=== PATIENT | male | born 1955 | race Caucasian/White ===

== ENCOUNTER 2023-02-21 10:50 | Emergency (ER) | payer OTHER, SELFPAY ==
--- NOTE | 2023-02-21 10:55 | ED.GENADUL1 ---
HPI - General Adult General Chief complaint: Back Pain/Injury Stated complaint: POSS. KIDNEY STONE OR BACK INJURY Time Seen by Provider: 02/21/23 10:55 History of Present Illness HPI narrative: Patient presents to emergency department complaining of left flank pain. Patient states the pain is severe and reminds him when he had a kidney stone over a year ago. He denies any hematuria, dysuria. He denies any fever, chills. He denies any nausea, vomiting, diarrhea, constipation, abdominal pain. He denies any trauma. He took tramadol which he has from last year has not had any relief from the pain. He denies any paresthesias, or weakness. He denies any urinary, bowel incontinence, retention. Related Data Previous Rx's Medication Instructions Recorded cephalexin 500 mg capsule 500 mg PO TID 7 days #21 caps 02/21/23 cyclobenzaprine 10 mg tablet 10 mg PO TID PRN muscle spasm 5 02/21/23 days #14 tabs Allergies Allergy/AdvReac Type Severity Reaction Status Date / Time No Known Drug Allergies Allergy Verified 02/21/23 10:57 Review of Systems ROS Status of ROS 10 or more systems reviewed and unremarkable except as noted in history and below [facility] Social History Smoking status: Never smoker Exam Narrative Exam Narrative: Nurses notes and vital signs reviewed and patient is not hypoxic. General: Nontoxic, Well-appearing and in no apparent distress. Skin: Warm, dry, no pallor noted. No Rash Head: Normocephalic, atraumatic. Neck: Supple, non-tender. Eye: Pupils are equal, round and EOMI. No scleral icterus. Ears, Nose, Mouth, and Throat: TM clear, no posterior oropharynx erythema or nasal mucosal hypertrophy, uvula is mid-line Oral mucosa is moist Cardiovascular: Regular Rate and Rhythm without murmur, gallop or rub. Respiratory: No accessory muscle use or respiratory distress. Lungs are clear to auscultation, no wheezing, rales or rhonchi Chest Wall: no tenderness Back: No midline thoracic or lumbar vertebral tenderness. Tenderness to palpation to the left flank and paraspinal muscles, no erythema, ecchymosis, signs of trauma, infection. Musculoskeletal: normal ROM, no calf or popliteal tenderness, no lower extremity edema/swelling GI: Obese, Abdomen is soft, non-distended. Normal bowel sounds. No masses appreciated. No tenderness to palpation. No rebound, guarding, or rigidity noted. Neurological: A&O x4. No cranial nerve dysfunction observed. No truncal ataxia. Moves all extremities. Sensation intact. Psychiatric: Cooperative and interactive. Normal mood and affect. Constitutional Vital Signs, click to edit/add: Last Vital Signs Temp 98 F 02/21/23 10:57 Pulse 63 02/21/23 10:57 Resp 18 02/21/23 10:57 BP 184/85 H 02/21/23 10:57 Pulse Ox 97 02/21/23 10:57 O2 Del Method Room Air 02/21/23 10:57 Course Vital Signs Vital signs: Vital Signs Temperature 98 F 02/21/23 10:57 Pulse Rate 63 02/21/23 10:57 Respiratory Rate 18 02/21/23 10:57 Blood Pressure 184/85 H 02/21/23 10:57 Pulse Oximetry 97 02/21/23 10:57 Oxygen Delivery Method Room Air 02/21/23 10:57 Temperature 98 F 02/21/23 10:57 Pulse Rate 63 02/21/23 10:57 Respiratory Rate 18 02/21/23 10:57 Blood Pressure 184/85 H 02/21/23 10:57 Pulse Oximetry 97 02/21/23 10:57 Oxygen Delivery Method Room Air 02/21/23 10:57 Medical Decision Making MDM Narrative Medical decision making narrative: Patient was given IV fluids, morphine, and Zofran. Labs studies were done and are unremarkable. He has trace leukocytes in the urine. He'll be started on Keflex. Patient advised this will be sent off for culture. Patient has tramadol at home. We will add Flexeril. He will follow up with his primary care doctor. CT scan results were discussed with patient. Nontoxic, stable for outpatient follow-up and treatment. At this time the patient is without objective evidence of an acute process requiring hospitalization or inpatient management. The patient has remained hemodynamically stable. No additional indication for emergent studies at this time. I answered all questions. Discussed discharge instructions including standard anticipatory guidance and what should prompt a return to the emergency department, including if they get worse are not getting better or develops any new or concerning symptoms. I've given them specific time frame in which to follow-up, and who to follow-up with. The patient demonstrates understanding. Patient is nontoxic and stable for discharge with outpatient follow-up. This note was created with the assistance of a speech recognition program. Although the intention is to generate documents that actually reflects the content of the visit, no guarantees can be provided that every mistake has been identified and corrected by editing. Lab Data Lab results reviewed: Yes I reviewed the patient's lab results Labs: Lab Results 02/21/23 Range/Units 11:14 WBC 3.3 L (4.0-11.0) 10^3/uL RBC 3.83 L (4.70-6.10) 10^6/uL Hgb 10.2 L (14.0-18.0) g/dL Hct 32.9 L (42.0-54.0) % MCV 85.9 (80.0-94.0) fL MCH 26.6 (25.9-34.0) pg MCHC 31.0 (29.9-35.2) g/dL RDW 15.5 H (11.0-15.0) % Plt Count 129 L (150-450) 10^3/uL MPV 9.2 L (9.5-13.5) fL Neut % (Auto) 54.6 (43.0-75.0) % Lymph % (Auto) 36.6 (20.5-60.0) % [place] % (Auto) 6.4 (1.7-12.0) % Eos % (Auto) 2.1 (0.9-7.0) % Baso % (Auto) 0.3 (0.2-2.0) % Neut # (Auto) 1.8 (1.4-6.5) 10^3/uL Lymph # (Auto) 1.2 (1.2-3.8) 10^3/uL [place] # (Auto) 0.2 L (0.3-0.8) 10^3/uL Eos # (Auto) 0.1 (0.0-0.7) 10^3/uL Baso # (Auto) 0.0 (0.0-0.1) 10^3/uL Abs Immat Gran (auto) 0.00 (0.00-0.03) 10^3/uL Imm/Tot Granulo (auto) 0.0 (0.0-0.5) % Sodium 140 (136-145) mmol/L Potassium 4.1 (3.5-5.1) mmol/L Chloride 105 (98-107) mmol/L Carbon Dioxide 23.3 (21.0-32.0) mmol/L Anion Gap 15.8 BUN 24.0 H (7.0-18.0) mg/dL Creatinine 1.00 (0.70-1.30) mg/dL Est GFR ( Amer) >60 (>=60) Est GFR (Non-Af Amer) >60 (>=60) BUN/Creatinine Ratio 24.0 Glucose 127 H (74-106) mg/dL Calcium 9.3 (8.5-10.1) mg/dL Total Bilirubin 0.5 (0.2-1.0) mg/dL AST 43 H (15-37) U/L ALT 50 (16-63) U/L Alkaline Phosphatase 171 H (46-116) U/L Total Protein 7.9 (6.4-8.2) g/dL Albumin 3.9 (3.4-5.0) g/dL Globulin 4.0 g/dL Albumin/Globulin Ratio 1.0 Urine Color Lt. yellow (YELLOW) Urine Clarity Clear (CLEAR) Urine pH 6.0 (5.0-9.0) Ur Specific [place] 1.025 (1.005-1.025) Urine Protein Negative (NEG/TRACE) mg/dL Urine Glucose (UA) Negative (NEGATIVE) mg/dL Urine Ketones Negative (NEGATIVE) mg/dL Urine Occult Blood Negative (NEGATIVE) Urine Nitrite Negative (NEGATIVE) Urine Bilirubin Negative (NEGATIVE) Urine Urobilinogen 0.2 (0.2-1.0) EU/dL Ur Leukocyte Esterase Trace A (NEGATIVE) Urine RBC None seen (0-2) #/HPF Urine WBC 0-2 A (NONE SEEN) #/HPF Ur Squamous Epith Cells None seen (NONE/RARE) #/LPF Urine Crystals None seen (None Seen) #/HPF Urine Bacteria None seen (NONE SEEN) #/HPF Urine Casts None seen (NONE SEEN) #/LPF Urine Mucus None seen (NONE SEEN) Ur Culture Indicated? No Discharge Plan Discharge Chief Complaint: Back Pain/Injury Clinical Impression: Strain of lumbar region, Acute UTI Patient Disposition: Home, Self-Care Time of Disposition Decision: 12:47 Condition: Good Mode of Transportation: Private Vehicle Prescriptions / Home Meds: New cyclobenzaprine 10 mg tablet 10 mg PO TID PRN (Reason: muscle spasm) 5 Days Qty: 14 0RF cephalexin 500 mg capsule 500 mg PO TID 7 Days Qty: 21 0RF Instructions: Urinary Tract Infection in Men (ED), Back Pain (ED) Stand Alone Forms: Portal Instructions Referrals: MARIA ALEJANDRA JENNINGS [Primary Care Provider] - 1 week
[2023-02-21 10:57] VITALS: BP 184/85; PULSE 63; RESP 18; TEMP 36.6; O2SAT 97; BMI 49.2
--- NOTE | 2023-02-21 11:09 | CT_ITS ---
The [address] [address] Patient Name: JUAN MOYA MRN: [id number] date: 1955 Sex: M Assigned Patient Location: ER Current Patient Location: ER Accession/Order Number: [id number] Exam Date: 02/21/2023 11:30 Report Date: 02/21/2023 12:16 At the request of: MIGUEL MINOR Procedure: CT abdomen pelvis wo con CT abdomen pelvis wo con CLINICAL HISTORY: Left flank pain since last night. History of renal stones. COMPARISON: None Available. TECHNIQUE: No IV contrast axial CT scan from lung bases through symphysis pubis. Lack of IV contrast limits evaluation of solid organs. Oral contrast was not administered. Coronal and sagittal reconstructed images generated. Dose reduction techniques were achieved by using automated exposure control and/or adjustment of mA and/or kV according to patient size and/or use of iterative reconstruction technique. FINDINGS: CT ABDOMEN FINDINGS: Normal heart size. Lung bases clear except for slight scarring. Liver measures 21 cm. Spleen measures 17 cm. Normal spontaneous adrenal glands. Gallbladder and pancreas unremarkable. No renal stones or hydronephrosis. Atherosclerotic aorta without aneurysm. GI tract nondilated without obstruction. A few colonic diverticula without diverticulitis. No other significant inflammatory change or ascites. Mild to moderate retained stool of the colon. No significant inflammatory change or ascites. CT PELVIS FINDINGS: Prostate is normal size with a few scattered calcifications. Urinary bladder unremarkable. Lumbar spondylosis without acute bony process. Visualized lower ribs are intact where seen. CT/CT abdomen pelvis wo con IMPRESSION: No renal stones or hydronephrosis. Occasional colonic diverticulosis without diverticulitis. No other acute process. Hepatosplenomegaly. Electronically authenticated by: MONIQUE MADRIGAL Date: 02/21/2023 12:16
[2023-02-21 11:27] LABS: Basophils Percent Auto 0.3 % (0.2-2.0); Eosinophils Absolute Auto 0.1 10^3/uL (0.0-0.7); Eosinophils Percent Auto 2.1 % (0.9-7.0); Hematocrit 32.9 % (42.0-54.0); Hemoglobin 10.2 g/dL (14.0-18.0); Lymphocytes Absolute Auto 1.2 10^3/uL (1.2-3.8); Lymphocytes Percent Auto 36.6 % (20.5-60.0); Mean Corpuscular Hemoglobin 26.6 pg (25.9-34.0); Mean Corpuscular Volume 85.9 fL (80.0-94.0); Mean Platelet Volume 9.2 fL (9.5-13.5); Monocytes Absolute Auto 0.2 10^3/uL (0.3-0.8); Monocytes Percent Auto 6.4 % (1.7-12.0); Neutrophils Absolute Auto 1.8 10^3/uL (1.4-6.5); Neutrophils Percent Auto 54.6 % (43.0-75.0); Platelet Count 129 10^3/uL (150-450); Red Blood Count 3.83 10^6/uL (4.70-6.10); Red Cell Distribution Width 15.5 % (11.0-15.0); White Blood Count 3.3 10^3/uL (4.0-11.0)
[2023-02-21 11:34] LABS: Bilirubin Urine NEGATIVE (NEGATIVE); Blood Urine NEGATIVE (NEGATIVE); Clarity Urine CLEAR (CLEAR); Color Urine LT. YELLOW (YELLOW); Glucose Urine UA NEGATIVE (NEGATIVE); Ketones Urine NEGATIVE (NEGATIVE); Leukocyte Esterase Urine TRACE (NEGATIVE); Nitrite Urine NEGATIVE (NEGATIVE); Protein Urine NEGATIVE (NEG/TRACE); Specific Gravity Urine 1.025 (1.005-1.025); Urobilinogen Urine 0.2 EU/dL (0.2-1.0)
[2023-02-21 11:36] LABS: Urine Microscopic Indicated YES
[2023-02-21 11:41] LABS: Bacteria Urine NONE SEEN #/HPF (NONE SEEN); Crystals Seen? None Seen #/HPF (None Seen); Mucus Urine NONE SEEN (NONE SEEN); RBC Urine NONE SEEN #/HPF (0-2); Squamous Epithelial Cell Urine NONE SEEN #/LPF (NONE/RARE); WBC Urine 0-2 #/HPF (NONE SEEN)
[2023-02-21 11:42] LABS: Cast Seen? NONE SEEN #/LPF (NONE SEEN); Urine Culture Indicated NO
[2023-02-21] MEDS: MORPHINE SULFATE 4 MG/ML VIAL IV (11:42)
[2023-02-21] MEDS: ONDANSETRON PF 4 MG/2 ML VIAL IV (11:42)
[2023-02-21 11:43] LABS: Alanine Aminotransferase 50 U/L (16-63); Albumin Level 3.9 g/dL (3.4-5.0); Alkaline Phosphatase 171 U/L (46-116); Anion Gap 15.8; Aspartate Amino Transferase 43 U/L (15-37); Bilirubin Total 0.5 mg/dL (0.2-1.0); Calcium 9.3 mg/dL (8.5-10.1); Carbon Dioxide 23.3 mmol/L (21.0-32.0); Chloride 105 mmol/L (98-107); Estimated GFR (African America >60 (>=60); Estimated GFR (Non-African Ame >60 (>=60); Glucose 127 mg/dL (74-106); Potassium 4.1 mmol/L (3.5-5.1); Sodium 140 mmol/L (136-145); Total Protein 7.9 g/dL (6.4-8.2)
[2023-02-21] MEDS: 0.9 % SODIUM CHLORIDE 1,000 ML 999 ML IV (11:43)
== END 2023-02-21 13:01 | disposition home or self-care (01) ==
PROVIDERS: Emergency Provider Emergency Medicine; PCP Internal Medicine
DX: N39.0 Urinary tract infection, site not specified (principal); S39.012A Strain of muscle, fascia and tendon of lower back, initial encounter; X58.XXXA Exposure to other specified factors, initial encounter; Z87.442 Personal history of urinary calculi
CPT/HCPCS: 36415; 74176; 80053; 81001; 81003; 85025; 96374; 96375; 99285

== ENCOUNTER 2023-07-17 07:44 | Outpatient (OUT) | payer OTHER, SELFPAY ==
--- NOTE | 2023-07-17 07:47 | US_ITS ---
The [address] [address] Patient Name: JUAN MOYA MRN: [id number] date: 1955 Sex: M Assigned Patient Location: US Current Patient Location: US Accession/Order Number: [id number] Exam Date: 07/17/2023 07:50 Report Date: 07/17/2023 08:34 At the request of: NON-STAFF PHYSICIAN Procedure: US right upper quadrant EXAM: US right upper quadrant HISTORY: . Splenomegaly R16.11 . COMPARISON: None. TECHNIQUE: Grayscale and color imaging was performed FINDINGS: The pancreas appears normal. The liver is enlarged measuring 23 cm. There is mild increased echogenicity of liver consistent with fatty infiltration of the liver. There is a 7 x 4 mm cyst within the left lobe of the liver. Color-flow is noted in the portal and hepatic veins. Common bile duct measures 2 mm. The gallbladder appears normal with no stones or sludge identified. Right kidney measures 13.5 x 4.8 x 5.6 cm. Color-flow is noted. No hydronephrosis is noted. There is a 1.1 x 0.9 cm hyperechoic area involving the midpole of the right kidney in the cortex. Findings most likely represent a benign lesion such as an angiomyolipoma. No fluid is noted in the right upper quadrant. US/US right upper quadrant IMPRESSION: 1. The liver is enlarged measuring 23 cm. There is diffuse increased echogenicity of liver consistent with fatty infiltration of liver. 2. 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 No hydronephrosis. 3. The remainder the right upper quadrant was unremarkable. Electronically authenticated by: RADHA LEBRON Date: 07/17/2023 08:34
== END 2023-07-17 07:45 | disposition home or self-care (01) ==
LOC: US 07:44
PROVIDERS: PCP Internal Medicine
DX: R16.1 Splenomegaly, not elsewhere classified (principal)
CPT/HCPCS: 76705

== ENCOUNTER 2024-06-29 08:39 | Outpatient (OUT) | payer OTHER, SELFPAY ==
--- NOTE | 2024-06-29 08:48 | CT_ITS ---
The [address] [address] Patient Name: JUAN MOYA MRN: [id number] date: 1955 Sex: M Assigned Patient Location: LAB Current Patient Location: LAB Accession/Order Number: [id number] Exam Date: 06/29/2024 09:55 Report Date: 06/29/2024 13:52 At the request of: ARABELLA MUÑOZ Procedure: CT abdomen pelvis w con EXAM: CT scan of the abdomen and pelvis using 100 mL of IV iodinated contrast. Dose reduction technique used: Automated exposure control and/or adjustment of the mA and/or kV according to patient size and/or use of iterative reconstruction technique. REASON FOR EXAM: Angiomyolipoma D17.9 COMPARISON: CT scan dated 02/21/2023 FINDINGS: Cirrhotic liver. Posterior right renal tiny angiomyolipoma measuring up to 10 mm. Upper abdominal varicosities. Splenomegaly measuring up to 15.4 cm. Tiny hepatic cyst. No evidence of appendicitis. No free fluid in the abdomen or pelvis. No free intraperitoneal air. No dilated or thickened loops of small bowel or colon. No hydronephrosis or obstructing renal or ureteral calculi. Liver, pancreas, spleen, bilateral kidneys, and bilateral adrenal glands are otherwise unremarkable. No lymphadenopathy in the abdomen or pelvis. Remainder unremarkable. CT/CT abdomen pelvis w con IMPRESSION: 1. Tiny right renal angiomyolipoma. 2. Cirrhotic liver with splenomegaly. Electronically authenticated by: ASHLYN GARCIA Date: 06/29/2024 13:52
[2024-06-29 08:57] LABS: Estimated GFR (African America >60 (>=60 mL/min/1.73m^2); Estimated GFR (Non-African Ame 53 (>=60 mL/min/1.73m^2)
== END 2024-06-29 08:40 | disposition home or self-care (01) ==
LOC: LAB 08:39
PROVIDERS: PCP Internal Medicine; Visit Provider Urology
DX: N20.0 Calculus of kidney (principal); D17.9 Benign lipomatous neoplasm, unspecified; N40.1 Benign prostatic hyperplasia with lower urinary tract symptoms; K74.69 Other cirrhosis of liver; R16.1 Splenomegaly, not elsewhere classified
CPT/HCPCS: 36415; 74177; 82565; 84153; Q9967

== ENCOUNTER 2025-07-12 08:53 | Outpatient (OUT) | payer MEDICARE, SELFPAY ==
--- OUTSIDE RECORDS SUMMARY | 2025-07-11 08:38 | XMS_ITS | Continuity of Care Document ---
Author Organization [facility] Address [address] [place] [address] Phone Care Team Providers Care Wall Man Name Role Phone Kendell Finch II Primary Care Provider [phone] Chaz Palacio MD Attending Provider [phone] Chaz Palacio MD Other Provider Care Teams Patient Care Team Team Status: Active Member Role/Relationship Status Dates Kendell Finch II MD Primary Care Provider Active Visit Care Team Team Status: Inactive Member Role/Relationship Status Dates Kendell Finch II MD Primary Care Provider Active Start: June 01, 2025 End: June 01Roberto Carlos Mchugh ProviderActiveStart: June 01, 2025 End: June 01, 2025 Visit Care Team Team Status: Inactive Member Role/Relationship Status Dates Kendell Finch II MD Primary Care Provider Active Start: June 13, 2025 End: June 13Roberto Carlos Mchugh ProviderActiveStart: June 13, 2025 End: June 13, 2025 Patient Care Team Team Status: Active Member Role/Relationship Status Kay Finch II MD Primary Care Provider Active Start: July 06, 2025 Roberto Carlos Tompkins ProviderActiveStart: July 06, 2025 Patient Care Team Team Status: Active Member Role/Relationship Status Kay Finch II MD Primary Care Provider Active Start: July 06, 2025 Roberto Carlos Tompkins ProviderActiveStart: July 06, 2025 Patient Care Team Team Status: Active Member Role/Relationship Status Dates Kendell Finch II MD Primary Care Provider Active Start: July 11, 2025 Roberto Carlos Tompkins ProviderActiveStart: July 11, 2025 Jamison Tompkins ProviderActiveStart: July 11, 2025 Chief Complaint and Reason for Visit Chief Complaint Admit Date follow up-fatty liver June 01, 2025 1:01pm K74.69 June 13, 2025 10:12am CC Gastro Follow Up July 06, 2025 11:42am CC Gastro Follow Up July 06, 2025 11:43am cirrhosis/esophageal varices July 112024 11:09am Reason for Visit Admit Date Cirrhosis June 01, 2025 1 :01pm GERD (gastroesophageal reflux disease) N ovember 2024 1:01pm Metabolic dysfunction-associated steatoh epatitis (MASH) June 01, 2025 1:01pm Portal hypertension June 01, 2025 1 :01pm Allergies, Adverse Reactions, Alerts Allergen Type Severity Reaction Last Updated Verified Status Comments aspirin Allergy Severe Gastrointestina l Upset July 03, 2025 7:12am Yes Active liver damage ibuprofen Allergy Severe Gastrointestina l Upset July 03, 2025 7:12am Yes Active acetaminophenAdverse ReactionUnknownGastrointestinal UpsetDecember 2024 7:12amYesActivehydrocodoneAdverse ReactionUnknownGastrointestinal UpsetDecember 2024 7:12amYesActive Social History Smoking Status Status Start Date End Date Date of Observa tion Never smoked tobacco (finding) July 11, 2025 12:15pm Observation Status Observation Response Date of Response Legal Sex Male (finding) Sex Assigned At BirthMaleJuly 1954 Family History Relationship Condition Age at Onset Recorded Date/T missy father Malignant neoplasm of urinary bladder Unk nown DeceasedUnknownmotherHyperlipidemiaUnknownHypertensionUnknownsisterLeukemia Unknown Problems Active Problems Problem Diagnosis/Recorded Date Onset Date Stat Metabolic dysfunction-associ ated steatohepatitis (MASH) February 04, 2024 9:05am Unknown Active Exercise counseling October 29, 2023 6:58am Unknown Active Sleep apnea July 07, 2023 12:45pm Unknown Active Abdominal cramping March 07, 2025 8:36am Unknown Active Dietary surveillance and counseling October 29, 2023 6: 58am Unknown Active Fatty liver October 29, 2023 7:12am Unknown Activ e Diabetes mellitus, type 2 July 07, 2023 12:45pm Unknown Active Esophageal varices September 25, 2023 9:08am Unknown Active Hypercholesteremia July 07, 2023 12:44pm Unknown Active Cirrhosis September 25, 2023 9:09am Unknown Activ e Mixed hyperlipidemia February 04, 2024 9:05am Unknown Active Obesity, Class II, BMI 35-39.9 May 24, 2024 8:18 am Unknown Active GERD (gastroesophageal reflux disease) July 05, 2024 10:02am Unknown Active Severe obesity (BMI >= 40) October 29, 2023 6:58am Unkn own Active Nausea & vomiting March 07, 2025 8:43am Unknown Active Abdominal pain March 07, 2025 8:43am Unknown A ctive Hypertension July 07, 2023 12:44pm Unknown Active Nausea March 07, 2025 8:35am Unknown Act sampson Obesity September 25, 2023 9:17am Unknown Activ e Portal hypertension June 01, 2025 1:01pm Unknown Active Portal hypertensive gastropathy July 05, 2024 10 :01am Unknown Active Inactive/Resolved Problems Problem Diagnosis/Recorded Date Onset Date Stat us WESTON (nonalcoholic steatohepatitis) September 25, 2023 9: 07am Unknown Resolved Medications Medication Status Dose Units Route Directions Qty Days Refills S tart Date Stop Date End Date Reason(s) Instructions Adherence Semaglutide (Ozempic) 0.25 m g or 0.5 mg (2 mg/3 mL) pen injector Discontinued 0.5 MG SUBCUT every week 3 0July 2023 10:56amJuly 2023 9:10am0.5 mg for 4 weeksSemaglutide 2 mg/dose (8 mg/3 mL) pen yqtbmmlsRjncujywqpjz5SNNECRRNpkand xxma38Jibrcsb 2023 8:26amOctober 2023 8:29amType 2 diabetes mellitus Type 2 diabetes mellitus without complicationsSemaglutide 2 mg/dose (8 mg/3 mL) pen havcoycqRbovng7EFPFEJFBmwptj ktlp92Whybgic 2024 6:46pmType 2 diabetes mellitus Type 2 diabetes mellitus without complicationsComplies with drug therapy Meloxicam 15 mg egutxiWjrptirvhwbm16EMXDEhlkbYrysflyg 2022 12:00am2022 1:21pmAspirin (Aspir-81) 81 mg Tablet,Delayed Release (Dr/Ec) Omffbbirffbp51BOFJVastxZixcinna 2022 12:00am2022 12:41pm Metformin 500 mg vsnasyJanmzodzazon592ULURYmxog dailyDe2022 12:00am September 25, 2023 9:00amAtorvastatin 80 mg zrxyuvTmffla96CLRMZtkwhFekabtst 2022 12:00amComplies with drug therapyLisinopril-Hydrochlorothiazide 20-12.5 mg rnjtoaJeczez6TVRGAPoyvl dailyJuly 07, 2023 12:00amComplies with drug therapyAspirin 325 mg EfzzwfKfuhiyakfulq063RAFKYobyaVergqalb 2022 12:00am September 25, 2023 8:57amPantoprazole 40 mg tablet,delayed release (DR/EC) Ynulvoylroer41TFGVGbmos fzfkp097Yqimuqab2022 12:00amApril 2023 7:10amCarvedilol 3.125 mg tabletDiscontinued3.125MGPOTwice dfufl797Azuchcut 12th, 2023 12:00amMarch 2023 9:00ammust administer with a meal/food Metformin 500 mg xxirnlSchscwyhbxpz6502UMARMrfnzFblql 2023 8:58amOctober 2023 7:50amCarvedilol 12.5 mg zrtauxYsfioz43.5MGPOTwice yiyzc354675Mvfu 13th, 2024 12:27pmTake 1 tablet orally twice a day.Complies with drug therapy Omeprazole 40 mg capsule,delayed release(DR/EC)Mfcjuzvanugn17NQBDEahwv yaoqm010 903June 2023 12:29pmDeceer 2023 9:59amTake 1 capsule orally 30 minutes before morning meal and 30 minutes before evening meal.Semaglutide (Ozempic) 0.25 mg or 0.5 mg (2 mg/3 mL) pen injectorDiscontinued0.5MGSUBCUTevery week2.815631Xwy 2023 8:55amJuly 2023 10:58am0.5 mg for 4 weeks followed by 1 mg for 4 weeksSemaglutide 2 mg/dose (8 mg/3 mL) pen injector Xicbliozqzlm3UYCWGJPBizhdd zbsv67Bjrxfj 2023 8:34amOctober 2023 8:26amType 2 diabetes mellitus Type 2 diabetes mellitus without complicationsFolic Acid 1 mg curltkTdefew3CELJ DailyOct2023 11:00pmComplies with drug therapySemaglutide 2 mg/dose (8 mg/3 mL) pen hfnkpekuOexouzpudlvq8DMJJAVEOpfmpq khvq76Hrojctl2023 8:29amDecember 2023 9:35amType 2 diabetes mellitus Type 2 diabetes mellitus without complicationsSemaglutide 2 mg/dose (8 mg/3 mL) pen svtloeizVfjmjstdvmad5KRUNUDLGsqtdr evji16Sygfqkvt 2023 9:35amJanuary 2024 6:47pmType 2 diabetes mellitus Type 2 diabetes mellitus without complicationsOmeprazole 40 mg capsule,delayed release(DR/EC)Mvcvse28TPMJAmozq dcote907829Zleos 2024 1:16pmTake 1 capsule orally 30 minutes before morning meal and 30 minutes before evening meal. Complies with drug therapyCarvedilol 3.125 mg sggrkaEwkxiizxvzqs41.5MGPOTwice dailyMarch 2023 8:58amApril 2023 7:09ammust administer with a meal/foodOxybutynin Chloride 15 mg tablet extended release 83mlKvqmeb12QYWLGxjtw September 25, 2023 12:00amComplies with drug therapyTramadol 50 mg ssezdsSypocb12WT POThree times daily as needed for painMarch 2023 12:00amComplies with drug therapyOmeprazole 40 mg capsule,delayed release(DR/EC)Pilvopxrrsil82GTPRXkhlf ixsem48019Yyujk 2023 12:00amJune 2023 12:30pmTake 1 capsule orally twice a dayCarvedilol 12.5 mg lhaotuFujejoimmxch18.5MGPOOnceApril 2023 11:00pmJune 2023 12:29pmBlood Sugar Diagnostic (True Metrix Glucose Test Strip) stripActiveSTRIP.ROUTE.NNKIGZUYN94Bzojy 2023 11:00pmAs directed Semaglutide (Ozempic) 0.25 mg or 0.5 mg (2 mg/3 mL) pen injectorDiscontinued0.25 MGSUBCUTevery mhhs1668Npxna 2023 11:00pmMay 2023 8:56am0.25 mg for 4 weeks followed by 0.5 mg for 4 weeksSemaglutide (Ozempic) 1 mg/dose (4 mg/3 mL) pen kkgsladbXjbpnwnpsiyf5RKIMDURKafjup qutc67Ilni 2023 11:00pmAugust 2023 8:35amType 2 diabetes mellitus Type 2 diabetes mellitus without complicationsOmeprazole 40 mg capsule,delayed release(DR/EC)Nxnzgnmvrpuy46BSJPXcomt rvycd409693Ulzccrfo 2023 9:58amMarch 2024 1:16pmTake 1 capsule orally 30 minutes before morning meal and 30 minutes before evening meal.vitamin p77Rechgs2QKTECRAV.once a monthAuunm cancer centert 2024 11:00pmComplies with drug therapy Procedures Procedure Date Performed Status US liver June 13, 2025 10:15am comp leted Relevant Diagnostic Tests and/or Laboratory Data Laboratory Results Test Collection Date/Time Result Date/Time Result Interpretation Reference Range Result Comment Performing Site Corrected White Blood Count June 13, 2025 10:52am June 13, 2025 11:34am 2.9 10*3/uL Below low normal 4.1-10.5 [facility] [id number] [address] [facility] [address]Ctkcszqxgnu [facility]20[facility] 10:52amNovember 2024 11:34am2.9 10*3/uLBelow low normal4.1-10.5[facility] [id number] [address] [facility] [address]Ehc Blood CountNovember 2024 10:52amNove2024 11:34am3.86 10*6/uLBelow low normal3.90-5.60[facility] [id number] [address] [facility] 66859WcmswhlfvwVuztmwgm 2024 10:52amNovemb2024 11:34am11.1 g/dLBelow low inhdtb25.0-17.0[facility] [id number] [address] [facility] 34958GnkhdbkzcvAhzmhewi 2024 10:52amNove2024 11:34am33.2 %Below low uhmrdl01.8-50.0[facility] [id number] [address] [facility] [address]Orxf Corpuscular VolumeNov2024 10:52amNove2024 11:34am86.1 fL83.5-101[facility] [id number] [address] [facility] [address]Pajg Corpuscular HemoglobinNovember 2024 10:52amNove2024 11:34am28.8 pg27.5-35.2FAs[facility]ab[facility] [id number] [address] [facility] 65806Embq Corpuscular Hemoglobin ConcentNovember 2024 10:52am June 13, 2025 11:34am33.5 g/dL32.5-35.6FAs[facility] [id number] [address] [facility] [address]Wye Cell Distribution WidthNovember 2024 10:52amNove2024 11:34am15.3 %Above high quhgqf97.0-14.8[facility] [id number] [address] [facility] [address]Htshdcnd CountNovember 2024 10:52amNovemb2024 11:34am94 10*3/uLBelow low upwvau830-166RxwzulxnqThe [facility] [id number] [address] [facility] [address]Ahjx Platelet VolumeNov2024 10:52amN2024 11:34am7.1 fL6.6-10.1FAshtab[facility] [id number] [address] [facility] [address]Jgqxriwnley (%) (Auto)June 13, 2025 10:52amNove2024 11:34am61.7 %.[facility] [id number] [address] [facility] [address]Ralskoalzbk (%) (Auto)June 13, 2025 10:52amNove2024 11:34am31.0 %.[facility] [id number] [address] [facility] 58[address]Zocgjbuhn (%) (Auto)June 13, 2025 10:52amNove2024 11:34am5.7 %.[facility] [id number] [address] [facility] [address]Xkjrrgptbrd (%) (Auto)June 13, 2025 10:52amNovemb2024 11:34am1.0 %.[facility] [id number] [address] [facility] [address]Bwbalrwis (%) (Auto)June 13, 2025 10:52amNovemb2024 11:34am0.6 %.[facility] [id number] [address] [facility] 125[address]Fudnjgxll RBC Relative Count (auto)June 13, 2025 10:52am June 13, 2025 11:34am0.5 /100{WBC}0-0.5FAs[facility] [id number] [address] [facility] [address]Pkiygebsnfa # (Auto)June 13, 2025 10:52amNovemb2024 11:34am1.8 10*3/uL1.8-7.7FAs[facility] [id number] [address] [facility] [address]48[address]Sggwegeuvfs # (Auto)June 13, 2025 10:52amNove2024 11:34am0.9 10*3/uLBelow low normal1.00-4.8[facility] [id number] [address] [facility] 246[address]Ogcqwxxmz # (Auto)June 13, 2025 10:52amNove2024 11:34am0.2 10*3/uL0.0-0.8[facility] [id number] [address] [facility] [address]Ryugclgmunn # (Auto)June 13, 2025 10:52amNove2024 11:34am0.0 10*3/uL0.0-0.45[facility] [id number] [address] [facility] [address]Ajoiwdhfe # (Auto)June 13, 2025 10:52amNove2024 11:34am0.0 10*3/uL0.0-0.2FAs[facility] [id number] [address] [facility] [address]Pfqsnagmoep TimeNov2024 10:52amN2024 12:00pm13.3 sAbove high normal9.0-12.9A hematocrit value greater than 55% may lead to inaccurate results in coagulation testing. Patientshaving hematocrit values >55% require a special collection tube for coagulation studies. Please c ontact the laboratory at [phone] for redraw instructions.[facility] [id number] [address] [facility] [address]Scqfclzrd Time International RatioNove2024 10:52am June 13, 2025 12:00pm1.2INR Therapeutic Range A) Pre- and Peroperative OAT started two weeks before surgery. NOT HIP SURGERY: 1.5 - 2.5 HIP SURGERY: 2 - 3B) Primary and secondary prevention of venous THROMBOSIS: 2 - 3C) Active venous thrombosis, pulmonary embolismand prevention of recurrent venous thrombosis: 2 - 3D) Prevention of arterial thromboembolismincluding patients with mechanical heart valves: 3 - 4.5FAs[facility] [id number] [address] [facility] [address]6Fzqeyik LevelJune 13, 2025 10:52amNove2024 11:05cl419 mg/dLAbove high -709XQZ recommended reference rangeRandom Glucose Reference Range is dependent on time and content of last meal. Glucose of more than 200 mg/dL in a nonstressed, ambulatory subject supports the diagnosisof Diabetes Mellitus.[facility] [id number] [address] [facility] [address]17[address]Terne Urea NitrogenJune 13, 2025 10:52amNove2024 11:57am29 mg/dLAbove high normal7-25[facility] [id number] [address] [facility] [address]76[address]EevqnvrttyZogglaui 18th, 2025 10:52amNove2024 11:57am1.06 mg/dL0.70-1.30[facility] [id number] [address] [facility] 71021Qwqihqxgp GFR (CKD-EPI)June 13, 2025 10:52amNove2024 11:57am> 60.0 mL/MinThe [facility] [id number] [address] [place] [address]3070Sodium LevelJune 13, 2025 10:52amNove2024 11:01tp938 mmol/M480-225McsqfwohuThe [facility] [id number] [address] [facility] 265[address]Lvhsfvrfs LevelJune 13, 2025 10:52amN2024 11:57am4.2 mmol/L3.5-5.1FAs[facility]ab[facility] [id number] [address] [facility] 43[address]Wfwbekpw LevelJune 13, 2025 10:52amNove2024 11:28bk422 mmol/C61-686KcvazozluThe [facility] [id number] [address] [place] 9053070Carbon Dioxide LevelJune 13, 2025 10:52amNove2024 11:57am26.5 mmol/L21.0-31.0[facility] [id number] [address] [facility] 83415Zflvq GapJune 135 10:52amNovemb2024 11:57am 11.7 mEq/L6.0-15.0[facility] [id number] [address] [facility] 49286Xjfazya LevelNovember 2024 10:52amNove2024 11:57am8.8 mg/dL8.6-10.3FAs[facility] [id number] [address] [facility] 29212Sbmro ProteinNovember 2024 10:52amNovemb2024 11:57am6.5 g/dL6.4-8.9[facility] [id number] [address] [facility] 58486SqdgbncAvvtayzk 2024 10:52amNove2024 11:57am 4.2 g/dL3.5-5.7FAshtab[facility] [id number] [address] [facility] 54678MdriemymOmbwgxny 18th, 2025 10:52amNove2024 11:57am 2.3 g/dLThe [facility] [id number] [address] [facility] 33[address]Jhjaqly/Globulin RatioNove2024 10:52amNove2024 11:57am1.8[facility] [id number] [address] [place] [address] 26[address]Hyufa BilirubinNovember 2024 10:52amNove2024 11:57am0.7 mg/dL0.3-1.0[facility] [id number] [address] [place] [address] 17468Ozcqcibnw Amino Transf (AST/SGOT)June 13, 2025 10:52am June 13, 2025 11:57am25 U/W74-47VinebamfvThe [facility] [id number] [address] [facility] 68528Dyfbedu Aminotransferase (ALT/SGPT)June 13, 2025 10:52am June 13, 2025 11:57am34 U/L7-52[facility] [id number] [address] [place] [address] 25489Zahebwny PhosphataseNov2024 10:52amNovember 2024 11:31ol572 U/LAbove high tocwyc96-356GcencjhjkThe [facility] [id number] [address] [place] [address] 58980Inqfwgry Creatinine Clearance (ChemNov2024 10:52am June 13, 2025 11:57amN/[facility] [id number] [address] [place] [address] 83385Mzsbn Marker Alpha FetoproteinJune 13, 2025 10:52am June 14, 2025 7:36am2.0 ng/mL0.0-8.4[facility] Electrochemiluminescence Immunoassay(ECLIA)Values obtained with different assay methods or kits cannotbe used interchangeably. Results cannot be interpreted asabsolute evidence of the presence or absence of malignantdisease.This test is not interpretable in females.Performed at: [facility] [employer] [id number] Director: Justo Crowder PhD, Phone: [phone] Diagnostic Imaging Reports Author Bjorn Holly [facility] YoungstownAuthoredMaynorthwest medical center 2024 11:30amReport Dictated Date/TimeDictated ByStatusRadiology ReportJune 13, 2025 11:30am Bjorn Holly Jr DOcompSt. Charles Hospital [facility] [address] [place] [address] Ultrasound Report Signed Patient: García Saldaña MR#: [id number] 34 : 1955 Acct:[id number] Age/Sex: 70 / M ADM Date: 5 Loc: Room: Type: [facility] Attending Dr: Chaz Palacio MD Ordering Provider: Chaz Palacio MD Date of Service: 06/13/25 US/US liver: K74.69 - Other cirrhosis of liver Copies to: Chaz Palacio MD~ LIMITED ABDOMINAL ULTRASOUND: CLINICAL HISTORY: Hepatic cirrhosis. COMPARISON: Liver ultrasound 09/23/2024 TECHNIQUE: Grayscale and color Doppler images of the right upper quadrant organs were obtained. FINDINGS: Pancreas: Visualized portions appear unremarkable. Liver: Cirrhotic liver. 5 mm cyst. Gallbladder: Unremarkable. CBD: 5.7 mm RT KIDNEY: No hydronephrosis. 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 US/US liver IMPRESSION: CIRRHOTIC LIVER WITHOUT SOLID MASS. 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 Impression dictated by: Bjorn Holly Jr., D.O. 06/13/2025 11:36 AM Dictation Location: [place] [address] Tech: Zoya Roy Transcribed By: PWS 06/13/25 1136 Dictated By: Bjorn Holly Jr, DO 06/13/25 1130 Signed By: <Electronically signed by Bjorn Holly Jr, DO in OV> 06/13/25 1136 Vital Signs Vital Reading Result Reference Range Collection Date/Time Height 65 [in_i] June 01, 2025 1:03paWqzjal654.19 kgNov2024 1:01pmHeart Rate63 /nbn45-945Wpzkutae 6th, 2025 1:01pmBP Xtuspggh521 mm[Hg]100-140Nov2024 1:01pmBP Pzlijkqkn06 mm[Hg]60-100Nov2024 1:01pmBMI (Body Mass Index)45.9 kg/a7Cymzvaoj2024 1:45lzTyvlmy91 [in_i]July 11, 2025 12:25ioUfeijb073.73 kgDecember 2024 12:14pmHeart Rate66 /nao88-409Qqannhwu 2024 1:30pmRespiratory rate18 /hlh22-66Fmdepvjl 2024 1:30pmOxygen saturation by Pulse zmaorteb24 %95-100December 2024 1:30pmBP Kpgmlper383 mm[Hg]100-140December 2024 1:30pmBP Aoljjlljg87 mm[Hg]60-100December 2024 1:30pm Advance Directives Advance Directive Response Recorded Date/ Time Advance Directives No February 01 6:17pm Insurance Providers Guarantor García Saldaña Address [address] [place] [id number] Info.Home Phone: Coverage Status Update:2025 Payer Group Member ID Coverage Type Subscriber Relationship to Subscriber Effective Date Expiration Date Jessica ALBRECHT Id: [id number] Osmon Id: [id number] [id number] [place] [address] Home Phone: Email: [email or web address] Encounters Encounter Location(s) Arrival/Admit Date Discharge/Departure Date Discharge/Departure Disposition Provider(s) Departed Physician/ Provider Office Visit -[facility] June 01, 2025 1:01pm June 01, 2025 1:31pm Discharged to home care or self care (routine discharge) Chaz Palacio MD Departed Clinical -Ultrasound [facility] June 13, 2025 10:12am June 13, 2025 10:13am Discharged to home care or self care (routine discharge) Chaz Palacio MD Non-patient / Non-visit -[facility] 2024 11:42am Chaz Palacio MDNon-patient / Jdo-sknix[facility]Jvkqaxnvb [facility] 2024 11:43amChaz Palacio MDNon-patient / Tlf-xmqpj-Cghfndcde [facility] 2024 11:09amChaz Palacio MD Recent Diagnosis Onset Date Admit Date Cirrhosis Unknown June 01 1:01pm GERD (gastroesophageal reflux disease) Unknown June 01, 2025 1:01pm Metabolic dysfunction-associ ated steatohepatitis (MASH) Unknown June 01, 2025 1:01pm Portal hypertension Unknown May 1:01pm Assessments Diagnosis Onset Date Resolution Status Admit Date Cirrhosis acuteJune 01, 2025 1:01pmGERD (gastroesophageal reflux disease)acute June 01, 2025 1:01pmMetabolic dysfunction-associated steatohepatitis (MASH) acuteJune 01, 2025 1:01pmPortal hypertensionacuteJune 01, 2025 1:01pm Plan of Treatment Author Chaz Palacio [facility]stownAuthoredJune 01, 2025 1:17pmContinue omeprazole 40 mg twice daily for GERD. Continue carvedilol 12.5 mg twice daily for clinically significant portal hypertension. Continue following with primary team and bariatric center for metabolic risk factor mitigation. We will schedule him for EGD for variceal surveillance. Due for HCC screening, will order right upper quadrant ultrasound today. Check MELD labs, AFP. If unremarkable follow-up with me in 1 year. Future Tests Future scheduled test information is unavailable Pending Tests Pending diagnostic test information is unavailable Future Visits Future appointment information is unavailable Future Procedures Procedure Name Ordered Date Scheduled Date Discharge Order July 11, 2025 12:57pm Dece mb 2024 12:57pm Future Medications Future medication information is unavailable Patient Instructions Instruction Admit Date Esophageal varices [facility] your [facility]sDecehu [facility] 2024 11:09am Hospital Discharge Instructions Additional Instructions DISCHARGE INSTRUCTIONS FOR UPPER ENDOSCOPY WHAT TO EXPECT: - You may feel full, gassy or cramping after your procedure. In some cases, this may be from a few hours to a day. Walking may help relieve the discomfort. - Your throat may feel sore today from the scope that the doctor passed through your throat to visualize your stomach. Take a throat lozenge or suck on ice to ease the discomfort. - You may notice some streaks of blood in your sputum if the doctor has taken a biopsy. - You should begin to recover from anesthesia within 1 hour of the procedure, however may feel groggy for the next 24 hours. DO's AND DON'Ts: - Call your doctor right away if you have a hard abdomen, severe pain, vomiting or if you cough up large amounts of blood. - Call your doctor if you develop any rashes, hives or difficulty breathing. - If you take 81 mg aspirin for your heart it is safe to resume this medication. - If you take other blood thinner medications your doctor will instruct you when these can safely be resumed. - Do NOT drive for 24 hours. - Do NOT operate machinery such as power tools, lawn mowers, snow blowers, sewing machines, etc. for 24 hours. - Avoid alcoholic beverages and drugs for allergies, nerves, or sleep. - Do NOT stay alone. Do NOT leave your child unattended. - Do NOT make important personal or business decisions or sign any legal documents. - Eat solid foods and drink liquids in smaller amounts than usual until normal appetite returns. If you should experience an upset stomach, liquids high in sugar content (soda, Charlie-Aid, non-acid juices) are recommended. - Do NOT smoke. - Do take it easy today. You need not stay in bed, but avoid strenuous activities such as jogging or working out. FOLLOW UP & RECOMMENDATIONS: - Continue taking your omeprazole and carvedilol. - Continue a low-sodium diet, 2 g or less daily. - Follow-up with Dr. Palacio yearly as scheduled. - Notify the doctor if you have any problems. - Follow up with PCP. - Office number [phone].
--- OUTSIDE RECORDS SUMMARY | 2025-07-12 08:56 | XMS_ITS | Clinical Summary ---
Author Organization [facility] Address [address] [place] [address] Care Team Providers Care Set Up Person Name Role Phone Kendell Finch MD Primary Care Provider [phone] Allergies Active AllergyReactionsCriticalityNoted DateCommentsHydrocodone-AcetaminophenGI intolerance,Other02/06/2023Nsaids (Non-Steroidal Anti-Inflammatory Drug)GI /28/2023 Medications MedicationSigDispense QuantityRefillsLast FilledStart DateEnd DateStatus aspirin 325 mg tablet in the morning.Active atorvastatin (Lipitor) 80 mg tablet atorvastatin 80 mg tablet TAKE 1 TABLET BY MOUTH EVERY DAYActive lisinopriL-hydrochlorothiazide 20-12.5 mg tablet lisinopril 20 mg-hydrochlorothiazide 12.5 mg tablet TAKE 1 TABLET BY MOUTH TWICE DAILYActive oxybutynin XL (Ditropan-XL) 15 mg 24 hr tablet Take 15 mg by mouth in the morning.Active meloxicam (Mobic) 15 mg tablet Take 15 mg by mouth in the morning.Active pantoprazole (ProtoNix) 40 mg EC tablet Take 40 mg by mouth in the morning and at bedtime.07/07/2023ctive traMADol (Ultram) 50 mg tablet Take 50 mg by mouth every 8 (eight) hours if needed.07/22/2023ctive Ozempic 1 mg/dose (4 mg/3 mL) pen injector Inject under the skin 1 (one) time per week.02/04/2024ctive folic acid (Folvite) 1 mg tablet Take 1,000 mcg by mouth in the morning.Active carvedilol (Coreg) 12.5 mg tablet Indications:Essential hypertension,Atherosclerosis of [place] coronary artery of [place] heart without angina pectorisTake 1 tablet (12.5 mg) by mouth with breakfast and with evening meal. 180 tablet //ctive cyanocobalamin (Vitamin B-12) 1,000 mcg/mL injection Inject 1,000 mcg into the shoulder, thigh, or buttocks every 30 (thirty) days. Active Active Problems ProblemNoted DateDiagnosed DateMonoclonal gammopathy of unknown significance 08/22/2024NASH (nonalcoholic steatohepatitis)08/22/2024bnormal findings on diagnostic imaging of mrazcnr4909/23/20231082Mfelfjrmnrqhoqff76/31/2024Erosive wskpbxmcr47Fatty liverortal hypertensive ccuoztnglzv72Iron deficiency anemia due to chronic blood loss 9624Xxifjwxeteaeqyftuk86/30/202301/03/2024Lower urinary tract symptoms due to benign prostatic dkogslqhnup11/14/202301/09/2023Lumbar degenerative disc txwrwet74Lumbar zykbszhfkrd67/14/2023 07/29/2023Obstructive sleep apneaOther chronic pain Overactive xbnyaab49rimary osteoarthritis rimary osteoarthritis of left knee Testicular ehftaoedsbsn13Type 2 diabetes mellitus without complication, without long-term current use of hukopxe48/09/2023 Carotid artery ioxdqupe09/05/2023 Assessment & Plan (07/29/2023 6:27 AM EST): Continue ASA, lipitor Lqionylipgxuyi63/11/2013 Assessment & Plan (07/29/2023 10:17 AM EST): Continue lipitor- GI and PCP monitoring liver function- currently remains stable Lipid profile stable with Chol < 200 and LDL 72- recommended heart healthy- low cholesterol dietand exercise to bring Chol/ LDL a little lower for LDL < 70 Coronary qgmawkkzgklbodj35/24/2013 Assessment & Plan (07/29/2023 10:19 AM EST): Coronary artery disease is stable- no concerning symptoms Continue GDMT- ASA, lipitor and coreg. continue risk factor modifications- heart healthy diet, regular exercise as tolerated and continue all medications. Abnormal results of cardiovascular function zeibjkx4101/28/2013Essential dpkjarpxwxgi52/05/2013 Assessment & Plan (07/29/2023 10:18 AM EST): Hypertension is well controlled Continue lisinopril/HCTZ, increase coreg to 12.5 mg bid and stop metoprolol B/P cuff script sent to pharmacy, asked pharmacy to DC metoprolol. Monitor b/p 1-2 times a day and call if b/p is > 130/80 and pt voiced understanding Vxkxpwf5301/28/2013 Immunizations ImmunizationAdministration DatesNext DueInfluenza, injectable, quadrivalent 05/20/2021,05/07/2019Influenza, injectable, quadrivalent, preservative free 07/03/2020Influenza, seasonal, venaisncug07/08/2014Influenza, seasonal, injectable, preservative free, 6 moonths & older07/26/2015Moderna SARS-CoV-2 Cfwddlbmcmd90/05/2021,1Pneumococcal Polysaccharide ZYL9526Tdap 11/17/2018 Family History Medical HistoryRelationNameCommentsHypertensionMaternal GrandmotherHypertension MotherRelationNameStatusCommentsFatherDeceasedMaternal GrandmotherMotherAlive Social History Tobacco UseTypesPacks/DayYears UsedDateSmoking Tobacco: NeverSmokeless Tobacco: Never Tobacco Cessation:Counseling Given: Not Answered Alcohol UseStandard Drinks/WeekCommentsNot Currently0 (1 standard drink = 0.6 oz pure alcohol)UT Safety & EnvironmentAnswerDate RecordedFear of Current or Ex-PartnerNot on file09/17/2023Emotionally AbusedNot on file09/17/2023hysically AbusedNot on file09/17/2023Sexually AbusedNot on file09/17/2023hysically or Sexually AbusedNot on file09/17/2023Sex and Gender InformationValueDate Recorded Sex Assigned at BirthNot on fileLegal TyrIvni1901/22/2022 11:05 PM EDTGender IdentityNot on fileSexual OrientationNot on file Last Filed Vital Signs Vital SignReadingTime TakenCommentsBlood Stqbwoao374/6606 11:02 AM EDT Mhnyv884101/05/2025 11:02 AM EDTTemperature--Respiratory Nfca140202/11/2024 9:45 AM EDTOxygen Cusrekcwpp91%01/05/2025 11:02 AM EDTInhaled Oxygen Concentration-- Crbphq593 kg (278 lb)01/05/2025 11:02 AM VALJfnlcv546.3 cm (5' 9 )01/05/2025 11:02 AM EDTBody Mass Index41.05001/05/2025 11:02 AM EDT Plan of Treatment Health MaintenanceDue DateLast DoneCommentsCT Jstbcluyeyni1957Diabetes: Hemoglobin A1C1957FIT-DNA1957FIT1957FOBT1957Medicare Annual Wellness (AWV)1955 8990Urleyxqrmsrmr1957Diabetes: Retinopathy Lbosppslc81/05/1967Depression Diptlywkf11/05/1969Pneumococcal Vaccine: 50+ Years (2 of 2 - PCV)Fall Risk Rpgvvzrjg83/05/2022COVID-19 Vaccine ( - 2024- season)/11/2020, 12/29/2020, 12/01/2020, Additional history existsInfluenza Vaccine (#1)/, 05/20/2021, 07/03/2020, Additional history existsDiabetes: Urine Protein Guudmuxak11/25/2025 04/20/2024, 3Adult Lytwrjw43Colonoscopy01/ 01/14/2022Colorectal Cancer Ybckatuuk57/14/2032Zoster VaccinesCompleted 09/24/2019, 06/10/2019HIB VaccinesAged OutNo longer eligible based on patient's age to complete this topicHPV VaccinesAged OutNo longer eligible based on patient's age to complete this topicIPV VaccinesAged OutNo longer eligible based on patient's age to complete this topicMeningococcal B VaccineAged OutNo longer eligible based on patient's age to complete this topicMeningococcal VaccineAged OutNo longer eligible based on patient's age to complete this topicRotavirus VaccinesAged OutNo longer eligible based on patient's age to complete this topic Insurance Care Teams Team MemberRelationshipSpecialtyStart DateEnd Kendell Ficnh MD [address] [facility] [address] [place] [address] PCP - General07/31/22
--- OUTSIDE RECORDS SUMMARY | 2025-07-12 08:56 | XMS_ITS | Encounter Summary ---
Author Organization [facility] Address [address] [place] [address] Care Team Providers Care Manufacturing Lab Technician Name Role Phone Kendell Finch MD Primary Care Provider [phone] Encounter Details DateTypeDepartmentCare Team (Latest Contact Info)Lskqoxlslzu56/10/2025bstract [facility] [place] [facility] [address] [place] [id number] Kendell Finch MD [address] [place], [place] [id number] Social History Tobacco UseTypesPacks/DayYears UsedDateSmoking Tobacco: NeverSmokeless Tobacco: NeverAlcohol UseStandard Drinks/WeekCommentsNot Currently0 (1 standard drink = 0.6 oz pure alcohol)caffeine intake: sodaPHQ-2AnswerDate RecordedPatient Health Questionnaire-2 Pillm209Finun[facility] of [facility] [place] [facility] Occup[facility] - Occupational Stress QuestionnaireAnswerDate RecordedDo you feel stress - tense, restless, nervous, or anxious, or unable to sleep at night because yourmind is troubled all the time - these days?Only a bfpftv8512/17/2023Exercise Vital Sign AnswerDate RecordedOn average, how many days per week do you engage in moderate to strenuous exercise (like a brisk walk)?Patient udjrbyqu42/23/2024On average, how many minutes do you engage in exercise at this level?Patient declined 12/17/2023Sex and Gender InformationValueDate RecordedSex Assigned at BirthNot on fileLegal GbjTkao16/ 7:05 PM EDTGender IdentityNot on fileSexual OrientationNot on filedocumented as of this encounter Plan of Treatment DateTypeDepartmentCare Team (Latest Contact Info)Geuikcnjbes41/28/2026 9:30 AM ESTOffice Visit [facility] [place] [facility] [address] [place] [address] Kendell Finch MD [address] [place] [address] documented as of this encounter Visit Diagnoses Not on filedocumented in this encounter Care Teams Team MemberRelationshipSpecialtyStart DateEnd Date Kendell Finch MD [address] [facility] [address] [place] [address] PCP - GeneralInternal Medicine02/11/23documented as of this encounter
--- OUTSIDE RECORDS SUMMARY | 2025-07-12 08:56 | XMS_ITS | Clinical Summary ---
Author Organization [facility] Address [address] [place], [place] [address] Care Team Providers Care Shape Brick Molder Name Role Phone Stef SHARMA MD, Kendell Vasquez Primary Care Provider [phone] Allergies Active AllergyReactionsCriticalityNoted DateCommentsHydrocodone-AcetaminophenGI Upset02/06/2023 Medications MedicationSigDispense QuantityRefillsLast FilledStart DateEnd DateStatus atorvastatin (LIPITOR) 80 mg tablet Take 80 mg by mouth.Active lisinopril-hydroCHLOROthiazide (ZESTORETIC) 20-12.5 mg per tablet Take 1 tablet by mouth.Active TRUE METRIX GLUCOSE TEST STRIP test strip once daily. USE DIRECTED.06/02/2023ctive carvedilol (COREG) 12.5 mg tablet Take 12.5 mg by mouth two times a day with meals.Active omeprazole (PRILOSEC) 40 mg capsule Take 1 capsule by mouth once daily.10/04/2023ctive oxybutynin ER (DITROPAN XL) 15 mg 24 hr Extended Rel Tab Take 15 mg by mouth once daily.Active OZEMPIC 1 mg/dose (4 mg/3 mL) pen Inject 2 mg subcutaneously one time a week.02/04/2024ctive traMADol (ULTRAM) 50 mg tablet Take 50 mg by mouth every 6 hours as needed for pain.12/23/2023ctive folic acid 1 mg tablet TAKE 1 TABLET BY MOUTH DAILY 90 tablet 5Active Active Problems ProblemNoted DateDiagnosed DateMegaloblastic anemia due to vitamin B12 ikwmuhzipg43/04/7687Tgshnxgkvizrxwkc89/31/2024MI 50.0-59.9, adult08/26/2023Iron deficiency anemia due to chronic blood loss07/08/2023 Encounters DateTypeDepartmentCare JfidJgnqowbqrdu00/25/2025 9:15 AM [facility] Hematology/Oncology [address] [place] [address] [place] [address] Megaloblastic anemia due to vitamin B12 deficiency (Primary Dx); Iron deficiency anemia due to chronic blood loss05/26/2025 12:30 PM [facility] Hematology/Oncology [address] [place] [address] [place] [address] Megaloblastic anemia due to vitamin B12 deficiency (Primary Dx); Iron deficiency anemia due to chronic blood loss05/26/2025 10:40 AM EDTVisit (SP) Office Hematology/Oncology [address] [place] [address] [place] [address] Alexis Samuels MD Iron deficiency anemia due to chronic blood loss (Primary Dx); Megaloblastic anemia due to vitamin B12 deficiency; MGUS (monoclonal gammopathy of unknown significance); Malaise and fatigue; Thrombocytopenia; Splenomegaly; Type 2 diabetes mellitus without complication, without long-term current use of insulin (HCC); Nonalcoholic fatty liver disease; Hypersplenism; Leukopenia, unspecified type; Other vitamin B12 deficiency anemia; Encounter for therapeutic drug level kojeqilwfj37/31/8209Idkcur02/30/2025Travel 05/02/2025Orders Only Hematology/Oncology [address] [place] [address] [place] [address] Alexis Samuels MD Megaloblastic anemia due to vitamin B12 deficiency (Primary Dx); Iron deficiency anemia due to chronic blood loss04/28/2025 11:45 AM [facility] Hematology/Oncology [address] [place] [address] [place] [address] Megaloblastic anemia due to vitamin B12 deficiency (Primary Dx); Iron deficiency anemia due to chronic blood loss04/24/2025Orders Only Hematology/Oncology [address] [place] [address] [place] [address] Twyla Aldridge APRN.[facility] CH[employer] 04/24/2025Orders Only Hematology/Oncology [address] [place] [address] [place] [address] Clarice Plaza APRN.[employer] CHAPERONE 04/22/2025Travelfrom Last 3 Months Immunizations ImmunizationAdministration DatesNext Dueinfluenza (HD-IIV4) vaccine, age 65+ yr, high dose, quadrivalent, PF (FLUZONE HIGH-DOSE)05/15/2023influenza (IIV3) vaccine, trivalent (AFLURIA, FLULAVAL, FLUVIRIN, FLUZONE)06/03/2014influenza (IIV3) vaccine, trivalent, PF (AFLURIA, FLUARIX, FLULAVAL, FLUVIRIN, FLUZONE) 07/26/2015,05/06/2013influenza (IIV4) vaccine, age 6 mo - 64 yr, quadrivalent, PF (AFLURIA, FLUARIX, FLULAVAL, FLUZONE)07/03/2020influenza (IIV4) vaccine, quadrivalent (AFLURIA, FLULAVAL, FLUZONE)05/20/2021,05/07/2019pneumococcal polysaccharide (PPV23) vaccine, 23 valent (PNEUMOVAX 23)05/19/2019,05/19/2019 tetanus diphtheria pertussis (Tdap) vaccine, age 7+ yr (ADACEL, BOOSTRIX) 11/17/2018zoster (RZV) vaccine, recombinant (SHINGRIX)09/24/2019,06/10/2019 Social History Tobacco UseTypesPacks/DayYears UsedDateSmoking Tobacco: NeverPassive Smoke Exposure: PastSmokeless Tobacco: Never Tobacco Cessation:Counseling Given: No Alcohol UseStandard Drinks/WeekCommentsNot Currently0 (1 standard drink = 0.6 oz pure alcohol)PHQ-2AnswerDate RecordedPHQ-2 [id number] Deprivation IndexAnswerDate RecordedNational Score (1-100), lower number is lower risk92 08/12/2023State Score (1-10), lower number is lower amha029ata from: https://www.neighborhoodatlas.[facility].edu/. Last address used for raqjxwwjj[address]08/12/2023Sex and Gender InformationValueDate Recorded Sex Assigned at BirthNot on fileLegal KeyLouv43/01/2023 9:40 AM ESTGender IdentityNot on fileSexual OrientationNot on file Last Filed Vital Signs Vital SignReadingTime TakenCommentsBlood Fdvkonkk062/6906/20/2025 9:22 AM EST Jeiat005206/20/2025 9:22 AM YSPEyfifamflkr67.6 ??C (97.8 ??F)06/20/2025 9:22 AM ESTRespiratory Nxtj702508/20/2024 9:22 AM ESTOxygen Qgufcrwlua30%06/20/2025 9:22 AM ESTInhaled Oxygen Concentration--Pqrave192.7 kg (279 lb 5.2 oz)05/26/2025 10:43 AM WJSGyvkqw846.2 cm (5' 7.01 )03/31/2025 11:46 AM EDTBody Mass Index43.74 03/31/2025 11:46 AM EDT Plan of Treatment DateTypeDepartmentCare Team (Latest Contact Info)Vkuszkulrdr32/26/2025 10:30 AM ESTOffice Visit [facility] [address] [place] [address] Lab and B1207/21/2025 10:45 AM [facility] Hematology/Oncology [address] [place] [address] [place] [address] Lab and 9:45 AM ESTOffice Visit [facility] [address] [place] [address] 12 week follow up with lab B 12 inj + POSSIBLE IRON08/18/2025 10:00 AM ESTVisit (SP) Office Hematology/Oncology [address] [place] [address] Alexis Samuels MD [address] [place] [address] 12 week follow up with lab B 12 inj + POSSIBLE IRON08/18/2025 10:30 AM EST Infusion Center Hematology/Oncology [address] [place] [address] 12 week follow up with lab B 12 inj + POSSIBLE IRON08/18/2025 11:00 AM EST [facility] Hematology/Oncology [address] [place] [address] 12 week follow up with lab B 12 inj + POSSIBLE IRONHealth MaintenanceDue Date Last DoneCommentsAnxiety Ujfqaxvjr88/05/1975Depression Aelfapqeh25/05/1975CT Bwxvexcfzdsy18/05/2002Cologuard (FIT-DNA)01/28/20026258Vlkucwgouux21/05/2002 Colorectal Cancer Opqdvdmvl57/05/2002Fecal Occult Blood2002Sigmoidoscopy 2002RSV Vaccine (1 - Risk 50-74 years 1-dose series)2007Pneumococcal Vaccine: 50+ (2 of 2 - PCV), 05/19/2019Advance Directive Dihpchpeco32/01/2025Medicare Advantage Annual Wellness Visit07/27/2024ovid-19 Vaccine ( season)/11/2020, 12/01/2020Influenza Vaccine (#1)/, 05/20/2021, 07/03/2020, Additional history existsLipid Riuwhzoga723Diabetes Pyipogcbs75, 05/26/2025, 04/28/2025, Additional history existsDTaP,Tdap,Td Vaccine (2 - Td or Tdap) Prostate Cancer Screening Npvhtvfudw66, 04/20/2024, 04/13/2023Shingrix RiiiofvAvvyeyjiu37/29/2020, 06/10/2019Hepatitis C NqctbrnfeRkdkwfpwh10/17/2024 Procedures Procedure NamePriorityDate/TimeAssociated DiagnosisCommentsKAPPA/PONCE,FREE,SER Ukfouub4306/20/2025 9:11 AM EST MGUS (monoclonal gammopathy of unknown significance) IMMUNOFIXATION SCREEN, QGEKJDwurwqh33/25/2025 9:11 AM EST MGUS (monoclonal gammopathy of unknown significance) IMMUNOGLOBULINS KXJYipnkcq22/25/2025 9:11 AM EST MGUS (monoclonal gammopathy of unknown significance) PROTEIN ELECTROPHORESIS SERUM (P)Zrmwkpl4706/20/2025 9:11 AM EST MGUS (monoclonal gammopathy of unknown significance) PROTEIN, TOTAL (FOR SEPG)Zpoeldk4606/20/2025 9:11 AM EST MGUS (monoclonal gammopathy of unknown significance) CALCIUM IONIZED ARLJVEsfzwfr19/25/2025 9:11 AM EST MGUS (monoclonal gammopathy of unknown significance) URIC ACID TXIAKBxucrzf30/25/2025 9:11 AM EST MGUS (monoclonal gammopathy of unknown significance) MONOCLONAL PROTEIN, SERUM (BLOOD)Iczbsfx1406/20/2025 9:11 AM EST MGUS (monoclonal gammopathy of unknown significance) PROTEIN ELECTROPHORESIS SERUM W/ZNCTSLQzbkbcp08/25/2025 9:11 AM EST MGUS (monoclonal gammopathy of unknown significance) PHOSPHORUS XBVKVTWGTKkhqhnr88/25/2025 9:11 AM EST MGUS (monoclonal gammopathy of unknown significance) LD LACTATE QSKRSPEWwvofye49/25/2025 9:11 AM EST MGUS (monoclonal gammopathy of unknown significance) B2 MICROGLOBULIN XDjxbbwp85/25/2025 9:11 AM EST MGUS (monoclonal gammopathy of unknown significance) FOLATE KMUWMUcaoyeb06/25/2025 9:11 AM EST Megaloblastic anemia due to vitamin B12 deficiency Iron deficiency anemia due to chronic blood loss VITAMIN B12 ABXIJEmukmmu08/25/2025 9:11 AM EST Megaloblastic anemia due to vitamin B12 deficiency Iron deficiency anemia due to chronic blood loss FERRITIN XRJSdgjlpa66/25/2025 9:11 AM EST Megaloblastic anemia due to vitamin B12 deficiency Iron deficiency anemia due to chronic blood loss IRON + LGOFOepsakc45/25/2025 9:11 AM EST Megaloblastic anemia due to vitamin B12 deficiency Iron deficiency anemia due to chronic blood loss COMPREHENSIVE METABOLIC TJXNXKqqzrdz26/25/2025 9:11 AM EST Megaloblastic anemia due to vitamin B12 deficiency Iron deficiency anemia due to chronic blood loss CBC + UXAPRtuwfya26/25/2025 9:11 AM EST Megaloblastic anemia due to vitamin B12 deficiency Iron deficiency anemia due to chronic blood loss FOLATE JCODOKmrumzu99/31/2025 10:22 AM EDT Megaloblastic anemia due to vitamin B12 deficiency Iron deficiency anemia due to chronic blood loss VITAMIN B12 WTMCSAskmnzs88/31/2025 10:22 AM EDT Megaloblastic anemia due to vitamin B12 deficiency Iron deficiency anemia due to chronic blood loss FERRITIN AQBChvhhhx02/31/2025 10:22 AM EDT Megaloblastic anemia due to vitamin B12 deficiency Iron deficiency anemia due to chronic blood loss IRON + YIUJEgzares52/31/2025 10:22 AM EDT Megaloblastic anemia due to vitamin B12 deficiency Iron deficiency anemia due to chronic blood loss COMPREHENSIVE METABOLIC SZBFNEodpqer55/31/2025 10:22 AM EDT Megaloblastic anemia due to vitamin B12 deficiency Iron deficiency anemia due to chronic blood loss CBC + OUUZWjjbfcg51/31/2025 10:22 AM EDT Megaloblastic anemia due to vitamin B12 deficiency Iron deficiency anemia due to chronic blood loss KAPPA/PONCE,FREE,YPKPgbyxps63/03/2025 11:23 AM EDT MGUS (monoclonal gammopathy of unknown significance) IMMUNOFIXATION SCREEN, KJWZYJqhavhv73/03/2025 11:23 AM EDT MGUS (monoclonal gammopathy of unknown significance) IMMUNOGLOBULINS CCYIwmlqvo80/03/2025 11:23 AM EDT MGUS (monoclonal gammopathy of unknown significance) PROTEIN ELECTROPHORESIS SERUM (P)Mwwghml1304/28/2025 11:23 AM EDT MGUS (monoclonal gammopathy of unknown significance) PROTEIN, TOTAL (FOR SEPG)Yzoeegb8104/28/2025 11:23 AM EDT MGUS (monoclonal gammopathy of unknown significance) CALCIUM IONIZED QNBGRLwfocct32/03/2025 11:23 AM EDT MGUS (monoclonal gammopathy of unknown significance) URIC ACID GUPPQPehytwh16/03/2025 11:23 AM EDT MGUS (monoclonal gammopathy of unknown significance) MONOCLONAL PROTEIN, SERUM (BLOOD)Srchbzf1604/28/2025 11:23 AM EDT MGUS (monoclonal gammopathy of unknown significance) PROTEIN ELECTROPHORESIS SERUM W/GKCVNVKbzmyoy26/03/2025 11:23 AM EDT MGUS (monoclonal gammopathy of unknown significance) PHOSPHORUS IJHUUCICLCohhyjg49/03/2025 11:23 AM EDT MGUS (monoclonal gammopathy of unknown significance) LD LACTATE QUMADRJRrzqsjh58/03/2025 11:23 AM EDT MGUS (monoclonal gammopathy of unknown significance) B2 MICROGLOBULIN BAkclxor29/03/2025 11:23 AM EDT MGUS (monoclonal gammopathy of unknown significance) FOLATE DIIOEUduhkqz26/03/2025 11:23 AM EDT Megaloblastic anemia due to vitamin B12 deficiency Iron deficiency anemia due to chronic blood loss VITAMIN B12 HTCQBWenaepi06/03/2025 11:23 AM EDT Megaloblastic anemia due to vitamin B12 deficiency Iron deficiency anemia due to chronic blood loss FERRITIN RWCYhbyxtc24/03/2025 11:23 AM EDT Megaloblastic anemia due to vitamin B12 deficiency Iron deficiency anemia due to chronic blood loss IRON + CGOSBdkqqvp49/03/2025 11:23 AM EDT Megaloblastic anemia due to vitamin B12 deficiency Iron deficiency anemia due to chronic blood loss COMPREHENSIVE METABOLIC XBNABAixjhsy38/03/2025 11:23 AM EDT Megaloblastic anemia due to vitamin B12 deficiency Thrombocytopenia MGUS (monoclonal gammopathy of unknown significance) Splenomegaly Iron deficiency anemia due to chronic blood loss CBC + CZLAKlldtpx64/03/2025 11:23 AM EDT Megaloblastic anemia due to vitamin B12 deficiency Thrombocytopenia MGUS (monoclonal gammopathy of unknown significance) Splenomegaly Iron deficiency anemia due to chronic blood loss HEPATITIS C ANTIBODY IA WITH AJINPNPDSWGGIipykos03/17/2024 9:18 AM EST Splenomegaly Iron deficiency anemia due to chronic blood loss from Last 3 Months or Most Recently Relevant to Health Maintenance Results * (ABNORMAL) IMMUNOFIXATION SCREEN, SERUM (06/20/2025 9:11 AM EST) Only the most recent of2 resultswithin the time period is included. ComponentValueRef RangeTest MethodAnalysis TimePerformed AtPathologist Signature MPA ResultM protein is present.(A)No M protein is identified.06/23/2025 9:03 AM [facility] MA[facility] LABInterpretation ([facility])Two sets of atypical restricted bands are present in the specimen, one in the IgG and kappa lanes, and the other in the IgG and lambda lanes. 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.06/23/2025 9:03 AM [facility] MAIN LABStaff Review ([facility])Reviewed by Cynthia Kendall M.D., Ph.D108/23/2024 9:03 AM [facility] LABSpecimen (Source)Anatomical Location / Laterality Collection Method / VolumeCollection TimeReceived TimeBloodBLOOD SPECIMEN / UnknownVenipuncture / Aaonmem2906/20/2025 9:11 AM EST06/20/2025 9:11 AM EST Narrative Authorizing ProviderResult TypeResult StatusClarice Plaza APPLICATION SUPPORT DEVELOPER.CNPLABORATORYFinal ResultPerforming OrganizationAddressCity/State/ZIP CodePhone Number [facility] [address] [place] [address], * PROTEIN, TOTAL (FOR SEPG) (06/20/2025 9:11 AM EST) Only the most recent of2 resultswithin the time period is included. ComponentValueRef RangeTest MethodAnalysis TimePerformed AtPathologist Signature Protein, Total6.46.3 - 8.0 g/dL06/20/2025 6:56 PM [facility] Specimen (Source)Anatomical Location / LateralityCollection Method / Volume Collection TimeReceived TimeBloodBLOOD SPECIMEN / UnknownVenipuncture / Unknown 06/20/2025 9:11 AM EST06/20/2025 9:11 AM EST Narrative Authorizing ProviderResult TypeResult StatusClarice Plaza APPLICATION SUPPORT DEVELOPER.CNPLABORATORYFinal ResultPerforming OrganizationAddressty/State/ZIP CodePhone Number [facility] [address] [place] [address], * (ABNORMAL) PROTEIN ELECTROPHORESIS SERUM (P) (06/20/2025 9:11 AM EST) Only the most recent of2 resultswithin the time period is included. ComponentValueRef RangeTest MethodAnalysis TimePerformed AtPathologist Signature Albumin for SPE3.893.43 - 5.41 g/dL06/22/2025 1:47 PM [facility] LABAlpha 1 Globulin0.270.18 - 0.43 g/dL06/22/2025 1:47 PM [facility] LABAlpha 2 Globulin0.690.42 - 0.98 g/dL06/22/2025 1:47 PM [facility] LABBeta Globulin0.800.61 - 1.17 g/dL06/22/2025 1:47 PM [facility] LABGamma Globulin0.750.53 - 1.51 g/dL06/22/2025 1:47 PM [facility] LABInterpretation (Prot Electro)An M protein is identified on protein electrophoresis.(A)No definitive M protein is identified on protein electrophoresis.06/22/2025 1:47 PM [facility] LABInterpretation Comment for Protein ElectrophoresisSee separate immunofixation report for characterization of monoclonal gammopathy.06/22/2025 1:47 PM [facility] LABM-Protein LocationGamma Fraction 1:47 PM [facility] LABM-Protein Concentration0.16(H)<=0.00 g/dL06/22/2025 1:47 PM [facility] LABSPE Staff ReviewReviewed by Cynthia Kendall M.D., Ph.D 06/22/2025 1:47 PM [facility] LABSpecimen (Source)Anatomical Location / LateralityCollection Method / VolumeCollection TimeReceived TimeBlood BLOOD SPECIMEN / UnknownVenipuncture / Joljfao4206/20/2025 9:11 AM EST06/20/2025 9:11 AM EST Narrative [facility] - 06/22/2025 1:47 PM EST Serum electrophoresis test was performed using the [employer] V8 NEXUS capillary electrophoresis method. Results obtained with different assay methods or kits cannot be used interchangeably. Authorizing ProviderResult TypeResult StatusJaimee Mela JOHNSONN.CNPLABORATORYFinal ResultPerforming OrganizationAddressCity/State/ZIP CodePhone Number [facility] [address] [place] [address], * (ABNORMAL) KAPPA/PONCE,FREE,SER (06/20/2025 9:11 AM EST) Only the most recent of2 resultswithin the time period is included. ComponentValueRef RangeTest MethodAnalysis TimePerformed AtPathologist Signature [place] Free, Serum32.2(H)3.3 - 19.4 mg/L108/21/2024 12:52 PM [facility] LABComment: Rarely, increased serum free light chains levels may not be detected or accurately quantified due to prozone phenomenon or in high viscosity samples using this immunoturbidimetric assay. Correlation with other laboratory results and clinical findings is recommended. The [place] Free Light Chain was performed using the Binding Site Optilite immunoturbidimetric method. Result obtained with different assay methods or kits cannot be used interchangeably. Lambda Free, Serum21.55.7 - 26.3 mg/L108/21/2024 12:52 PM [facility] LABComment: Rarely, increased serum free light chains levels may not be detected or accurately quantified due to prozone phenomenon or in high viscosity samples using this immunoturbidimetric assay. Correlation with other laboratory results and clinical findings is recommended. The Lambda Free Light Chain was performed using the Binding Site Optilite immunoturbidimetric method. Result obtained with different assay methods or kits cannot be used interchangeably. ?? K/L Ratio, Serum1.500.26 - 1.6506/21/2025 12:52 PM [facility] Specimen (Source)Anatomical Location / LateralityCollection Method / Volume Collection TimeReceived TimeBloodBLOOD SPECIMEN / UnknownVenipuncture / Unknown 06/20/2025 9:11 AM EST06/20/2025 9:11 AM EST Narrative Authorizing ProviderResult TypeResult StatusJaimee Mela APPLICATION SUPPORT DEVELOPER.CNPLABORATORYFinal ResultPerforming OrganizationAddressCity/State/ZIP CodePhone Number [facility] [address] [place] [address], * LACTATE DEHYDROGENASE (06/20/2025 9:11 AM EST) Only the most recent of2 resultswithin the time period is included. ComponentValueRef RangeTest MethodAnalysis TimePerformed AtPathologist Signature [id number] - 225 U/L108/20/2024 10:56 AM [facility] Specimen (Source)Anatomical Location / LateralityCollection Method / Volume Collection TimeReceived TimeBloodBLOOD SPECIMEN / UnknownVenipuncture / Unknown 06/20/2025 9:11 AM EST06/20/2025 9:11 AM EST Narrative Authorizing ProviderResult TypeResult StatusJaimee Mela APPLICATION SUPPORT DEVELOPER.CNPLABORATORYFinal ResultPerforming OrganizationAddressCity/State/ZIP CodePhone Number [facility] [address] [place] [phone] * VITAMIN B12 (06/20/2025 9:11 AM EST) Only the most recent of3 resultswithin the time period is included. ComponentValueRef RangeTest MethodAnalysis TimePerformed AtPathologist Signature Vitamin [id number] - 1,245 pg/mL06/20/2025 7:12 PM [facility] Specimen (Source)Anatomical Location / LateralityCollection Method / Volume Collection TimeReceived TimeBloodBLOOD SPECIMEN / UnknownVenipuncture / Unknown 06/20/2025 9:11 AM EST06/20/2025 9:11 AM EST Narrative Authorizing ProviderResult TypeResult StatusVivek Abril MDLABORATORYFinal ResultPerforming OrganizationAddressCity/State/ZIP CodePhone Number [facility] [address] [place] [address], * (ABNORMAL) URIC ACID (06/20/2025 9:11 AM EST) Only the most recent of2 resultswithin the time period is included. ComponentValueRef RangeTest MethodAnalysis TimePerformed AtPathologist Signature Uric Acid8.8(H)4.0 - 8.1 mg/dL06/20/2025 10:56 AM [facility] LABSpecimen (Source)Anatomical Location / LateralityCollection Method / VolumeCollection TimeReceived TimeBloodBLOOD SPECIMEN / UnknownVenipuncture / Wvuuyxt5706/20/2025 9:11 AM EST06/20/2025 9:11 AM EST Narrative Authorizing ProviderResult TypeResult StatusJaimee Mela GUTIERREZCNPLABORATORYFinal ResultPerforming OrganizationAddressCity/State/ZIP CodePhone Number [facility] [address] [place] [address] * PHOSPHORUS INORGANIC (06/20/2025 9:11 AM EST) Only the most recent of2 resultswithin the time period is included. ComponentValueRef RangeTest MethodAnalysis TimePerformed AtPathologist Signature Phosphorus3.82.7 - 4.8 mg/dL06/20/2025 10:56 AM [facility] LABSpecimen (Source)Anatomical Location / LateralityCollection Method / VolumeCollection TimeReceived TimeBloodBLOOD SPECIMEN / UnknownVenipuncture / Ejdpzfr0806/20/2025 9:11 AM EST06/20/2025 9:11 AM EST Narrative Authorizing ProviderResult TypeResult StatusClarice Plaza APRN.CNPLABORATORYFinal ResultPerforming OrganizationAddressCity/State/ZIP CodePhone Number [facility] [address] [place] [address] * IRON AND TIBC (06/20/2025 9:11 AM EST) Only the most recent of3 resultswithin the time period is included. ComponentValueRef RangeTest MethodAnalysis TimePerformed AtPathologist Signature Rpxt4425 - 186 ug/dL06/20/2025 6:04 PM [facility] MAIN [id number] - 386 ug/dL06/20/2025 6:04 PM [facility] LABTransferrin Saturation 15.315.0 - 57.0 %06/20/2025 6:04 PM [facility] LABSpecimen (Source)Anatomical Location / LateralityCollection Method / VolumeCollection TimeReceived TimeBloodBLOOD SPECIMEN / UnknownVenipuncture / Jwthwpb2806/20/2025 9:11 AM EST06/20/2025 9:11 AM EST Narrative Authorizing ProviderResult TypeResult StatusAlexis Samuels MDLABORATORYFinal ResultPerforming OrganizationAddressCity/State/ZIP CodePhone Number [facility] [address] * IMMUNOGLOBULINS,IGG,IGA,IGM (06/20/2025 9:11 AM EST) Only the most recent of2 resultswithin the time period is included. ComponentValueRef RangeTest MethodAnalysis TimePerformed AtPathologist Signature [id number] - 1,600 mg/dL06/20/2025 7:28 PM [facility] MAIN [id number] - 400 mg/dL06/20/2025 7:28 PM [facility] [id number] - 230 mg/dL 06/20/2025 7:28 PM [facility] LABSpecimen (Source)Anatomical Location / LateralityCollection Method / VolumeCollection TimeReceived TimeBlood BLOOD SPECIMEN / UnknownVenipuncture / Zrbkwec9706/20/2025 9:11 AM EST11/ 9:11 AM EST Narrative Authorizing ProviderResult TypeResult StatusClarice Plaza APRN.CNPLABORATORYFinal ResultPerforming OrganizationAddressCity/State/ZIP CodePhone Number [facility] [address] [place] [address], * FOLATE, SERUM (06/20/2025 9:11 AM EST) Only the most recent of3 resultswithin the time period is included. ComponentValueRef RangeTest MethodAnalysis TimePerformed AtPathologist Signature Folate>20.0>4.7 ng/mL06/20/2025 7:12 PM [facility] LABComment: A result of > 20 ng/mL is not necessarily indicative of a pathologic or treatable condition: it reflects a limitation of the test methodology. Assay reference range: 4.8 to 24.2 ng/mL. Suitable for detection of folate deficiency. Reference: Folate III (Folate III) [package insert V 1.0 [place]an]. [facility], [place], [place]: May 2015. Specimen (Source)Anatomical Location / LateralityCollection Method / Volume Collection TimeReceived TimeBloodBLOOD SPECIMEN / UnknownVenipuncture / Unknown 06/20/2025 9:11 AM EST06/20/2025 9:11 AM EST Narrative Authorizing ProviderResult TypeResult StatusVivek Abril COLEMANLABORATORYFinal ResultPerforming OrganizationAddressCity/State/ZIP CodePhone Number [facility] [address] [place] [address], * FERRITIN (06/20/2025 9:11 AM EST) Only the most recent of3 resultswithin the time period is included. ComponentValueRef RangeTest MethodAnalysis TimePerformed AtPathologist Signature Poceqlsp13.030.3 - 565.7 ng/mL06/20/2025 6:11 PM [facility] Specimen (Source)Anatomical Location / LateralityCollection Method / Volume Collection TimeReceived TimeBloodBLOOD SPECIMEN / UnknownVenipuncture / Unknown 06/20/2025 9:11 AM EST06/20/2025 9:11 AM EST Narrative Authorizing ProviderResult TypeResult StatusVivek Abhyankar MDLABORATORYFinal ResultPerforming OrganizationAddressCity/State/ZIP CodePhone Number [facility] [address] [phone], * (ABNORMAL) COMPREHENSIVE METABOLIC PANEL (06/20/2025 9:11 AM EST) Only the most recent of3 resultswithin the time period is included. ComponentValueRef RangeTest MethodAnalysis TimePerformed AtPathologist Signature Protein, Total6.36.3 - 8.0 g/dL06/20/2025 10:56 AM [facility] LABAlbumin4.23.9 - 4.9 g/dL06/20/2025 10:56 AM ESTN[facility]ELLE[facility] LABCalcium, Total9.38.5 - 10.2 mg/dL06/20/2025 10:56 AM EST [facility] LABBilirubin, Total0.50.2 - 1.3 mg/dL 06/20/2025 10:56 AM [facility] LABAlkaline Phosphatase 66414 - 113 U/L108/20/2024 10:56 AM [facility]UN[facility] SIKKOW92 14 - 40 U/L108/20/2024 10:56 AM [facility] MGIKHS9210 - 54 U/L108/20/2024 10:56 AM [facility] YCZFmerqla338(H) 74 - 99 mg/dL06/20/2025 10:56 AM [facility] Comment: The [place] Diabetes Association (ADA) provides guidance for cutoff values for fasting glucose andrandom glucose. The ADA defines fasting as no caloric intake for at least 8 hours. Fasting plasma glucose results between 100 to 125 mg/dL indicate increased risk for diabetes (prediabetes). Fasting plasma glucose results greater than or equal to 126 mg/dL meet the criteria for diagnosis of diabetes. In the absence of unequivocal hyperglycemia, results should be confirmed by repeat testing. In a patient with classic symptoms of hyperglycemia or hyperglycemic crisis, random plasma glucose results greater than or equal to 200 mg/dL meet the criteria for diagnosis of diabetes. Reference: Standards of Medical Care in Diabetes 2016, [place] Diabetes Association. Diabetes Care. 2016.39(Suppl 1). BUN49(H)9 - 24 mg/dL06/20/2025 10:56 AM [facility] Creatinine1.54(H)0.73 - 1.22 mg/dL06/20/2025 10:56 AM [facility] EFAAihavr942515 - 144 mmol/L108/20/2024 10:56 AM [facility] LABPotassium4.23.7 - 5.1 mmol/L108/20/2024 10:56 AM EST [facility] IQVEyxbdowu10365 - 107 mmol/L108/20/2024 10:56 AM [facility] KHZOK45291 - 30 mmol/L108/20/2024 10:56 AM [facility] LABAnion Mpx821 - 15 mmol/L108/20/2024 10:56 AM [facility] LABEstimated Glomerular Filtration Rate49(L)>=60 mL/min/1.73m 06/20/2025 10:56 AM [facility] LABComment:Estimated Glomerular Filtration Rate (eGFR) is calculated using the 2020 CKD-EPI creatinine equation. This equation utilizes serum creatinine, sex, and age as parameters. The creatinine assay has traceable calibration to isotope dilution- mass spectrometry. Refer to KDIGO guidelines for clinical interpretation. In patients with unstable renal function, e.g. those with acute kidney injury, the eGFRmay not accurately reflect actual GFR.Specimen (Source)Anatomical Location / LateralityCollection Method / VolumeCollection TimeReceived TimeBloodBLOOD SPECIMEN / UnknownVenipuncture / Kvbmbwp7306/20/2025 9:11 AM EST06/20/2025 9:11 AM EST Narrative Authorizing ProviderResult TypeResult StatusAlexis Samuels MDLABORATORYFinal ResultPerforming OrganizationAddressCity/State/ZIP CodePhone Number [facility] [address] [place] [address] * CALCIUM, IONIZED (06/20/2025 9:11 AM EST) Only the most recent of2 resultswithin the time period is included. ComponentValueRef RangeTest MethodAnalysis TimePerformed AtPathologist Signature Normalized Calcium1.201.08 - 1.30 mmol/L108/20/2024 2:22 PM ESTH[facility] LABCalcium Ionized, Whole Blood1.191.08 - 1.30 mmol/L108/20/2024 2:22 PM EST [facility] LABSpecimen (Source)Anatomical Location / Laterality Collection Method / VolumeCollection TimeReceived TimeBloodBLOOD SPECIMEN / UnknownVenipuncture / Ndsjdxw1906/20/2025 9:11 AM EST06/20/2025 9:11 AM EST Narrative Authorizing ProviderResult TypeResult StatusJaimee Mela JOHNSONN.CNPLABORATORYFinal ResultPerforming OrganizationAddressCity/State/ZIP CodePhone Number [facility] [address] * (ABNORMAL) COMPLETE BLOOD COUNT AND DIFFERENTIAL (06/20/2025 9:11 AM EST) Only the most recent of3 resultswithin the time period is included. ComponentValueRef RangeTest MethodAnalysis TimePerformed AtPathologist Signature WBC2.73(L)3.70 - 11.00 k/uL06/20/2025 9:21 AM ESTNORTUNIV[facility] LABRBC3.65(L)4.20 - 6.00 m/uL06/20/2025 9:21 AM EST[facility] COQOnhdqxkntf63.5(L)13.0 - 17.0 g/dL06/20/2025 9:21 AM EST [facility] OXXWewrnlyzak80.3(L)39.0 - 51.0 %06/20/2025 9:21 AM EST[facility] NGRSZB47.580.0 - 100.0 fL06/20/2025 9:21 AM ESTNOR[facility] FIHGEF01.826.0 - 34.0 pg06/20/2025 9:21 AM ESTNOR[facility]CT[facility] ILATKWL59.530.5 - 36.0 g/dL 06/20/2025 9:21 AM [facility] LABRDW-CV13.911.5 - 15.0 %06/20/2025 9:21 AM [facility] LABPlatelet Count84(L) 150 - 400 k/uL06/20/2025 9:21 AM [facility] Comment:No clot detected.MPV8.5(L)9.0 - 12.7 fL06/20/2025 9:21 AM [facility] LABNeutrophils %58.9%06/20/2025 9:21 AM [facility] LABAbs Neut1.611.45 - 7.50 k/uL06/20/2025 9:21 AM [facility] LABLymphocytes %32.6%06/20/2025 9:21 AM [facility] LABAbs Lymph0.89(L)1.00 - 4.00 k/uL06/20/2025 9:21 AM [facility] LABMonocytes %6.6%06/20/2025 9:21 AM [facility] LABAbs Mono0.18<0.87 k/uL06/20/2025 9:21 AM [facility] LABEosinophils %1.1%06/20/2025 9:21 AM [facility] LABAbs Eosin0.03<0.46 k/uL06/20/2025 9:21 AM [facility] LABBasophils %0.4%06/20/2025 9:21 AM [facility] LABAbs Baso<0.03<0.11 k/uL06/20/2025 9:21 AM [facility] LABImmature Granulocytes %0.4%06/20/2025 9:21 AM [facility] LABAbs Immature Gran<0.03<0.10 k/uL 06/20/2025 9:21 AM [facility] LABNRBC0.0/100 WBC 06/20/2025 9:21 AM [facility] LABAbsolute nRBC<0.01 <0.01 k/uL06/20/2025 9:21 AM [facility] LABDiff Type Auto06/20/2025 9:21 AM [facility] LABSpecimen (Source) Anatomical Location / LateralityCollection Method / VolumeCollection Time Received TimeBloodBLOOD SPECIMEN / UnknownVenipuncture / Ktkjvnw2106/20/2025 9:11 AM EST06/20/2025 9:11 AM EST Narrative Authorizing ProviderResult TypeResult StatusAlexis Samuels MDLABORATORYFinal ResultPerforming OrganizationAddressCity/State/ZIP CodePhone Number [facility] [address] [place] [address] * (ABNORMAL) B2 MICROGLOBULIN (06/20/2025 9:11 AM EST) Only the most recent of2 resultswithin the time period is included. ComponentValueRef RangeTest MethodAnalysis TimePerformed AtPathologist Signature B2 Microglobulin3.3(H)<3.1 mg/L108/20/2024 6:40 PM ESTJ[facility] Comment:Beta-2 Microglobulin test is performed using the [facility] immunoturbidimetric method. Results obtained with different methods or kits cannot be used interchangeably.Specimen (Source)Anatomical Location / Laterality Collection Method / VolumeCollection TimeReceived TimeBloodBLOOD SPECIMEN / UnknownVenipuncture / Jjtyshp1806/20/2025 9:11 AM EST06/20/2025 9:11 AM EST Narrative Authorizing ProviderResult TypeResult StatusClarice Plaza APRN.CNPLABORATORYFinal ResultPerforming OrganizationAddressCity/State/ZIP CodePhone Number [facility] [address] [place] [address], * HEPATITIS C ANTIBODY IA WITH CONFIRMATION (08/12/2023 9:18 AM EST)Component ValueRef RangeTest MethodAnalysis TimePerformed AtPathologist SignatureHep C Antibody VCZwagofsaDnfhfwgg37/17/2024 6:21 PM ESTK[facility] LABComment:The result suggests no evidence of active infection with Hepatitis C virus. Should recent infectionbe suspected, repeat testing may be considered 4-6 weeks after this draw.Specimen (Source)Anatomical Location / Laterality Collection Method / VolumeCollection TimeReceived TimeBloodBLOOD SPECIMEN / UnknownVenipuncture / Wutcraq8608/12/2023 9:18 AM EST08/12/2023 9:18 AM EST Narrative Authorizing ProviderResult TypeResult StatusRomero Quesada MDLABORATORYFinal ResultPerforming OrganizationAddressCity/State/ZIP CodePhone Number [facility] [address] [phone], from Last 3 Months or Most Recently Relevant to Health Maintenance Insurance Care Teams Team MemberRelationshipSpecialtyStart DateEnd Date Kendell Finch II, MD [address] [facility] [address] [place] [address] PCP - GeneralInternal Qrwoagby81/1/23
--- OUTSIDE RECORDS SUMMARY | 2025-07-12 08:56 | XMS_ITS | Clinical Summary ---
Author Organization [facility] Healthcare Address [address] [facility] [address] Care Team Providers Care Roll Tender Name Role Phone Kendell Finch MD Primary Care Provider [phone] Allergies Active AllergyReactionsCriticalityNoted DateCommentsHydrocodone-AcetaminophenGI jkobzosqzxy54/14/2023NsaidsGI ojjylwyp20/28/2023 Medications MedicationSigDispense QuantityRefillsLast FilledStart DateEnd DateStatus carvedilol (Coreg) 12.5 MG tablet Take 12.5 mg by mouth in the morning and 12.5 mg in the evening. Take with meals.Active oxybutynin XL (Ditropan-XL) 15 MG 24 hr tablet Take 15 mg by mouth DailyActive omeprazole (PriLOSEC) [address] capsule Take 1 capsule by mouth in the morning. Take before meals.10/04/2023ctive folic acid (Folvite) 1 MG tablet Take 1 mg by mouth Daily04/29/2024ctive Semaglutide, 2 MG/DOSE, (Ozempic, 2 MG/DOSE,) 8 MG/3ML solution pen-injector Indications:Type 2 diabetes mellitus with other specified complication, without long-term current use of insulin ([facility])Inject 2 mg under the skin every 7 (seven) days 3 mL 11015Active Glucose Blood (Blood Glucose Test) strip Indications:Type 2 diabetes mellitus with other specified complication, without long-term current use of insulin ([facility])1 each by In Vitro route Daily 100 strip 3015Active Lancets 30G misc Indications:Type 2 diabetes mellitus with other specified complication, without long-term current use of insulin ([facility])1 each Daily 100 each 5Active lisinopril-hydroCHLOROthiazide 20-12.5 MG tablet Indications:Benign essential hypertensionTake 1 tablet by mouth in the morning and 1 tablet before bedtime. 200 tablet 5Active cyanocobalamin (Vitamin B-12) 1000 MCG/ML injection Inject 1,000 mcg into the shoulder, thigh, or buttocks every 30 (thirty) days Active atorvastatin (Lipitor) 80 MG tablet Indications:HypercholesterolemiaTake 1 tablet (80 mg) by mouth Daily 100 tablet 5Active Active Problems ProblemNoted DateDiagnosed DateNASH (nonalcoholic steatohepatitis)08/22/2024 Monoclonal gammopathy of unknown bkmvgdcoheao46/27/2025bnormal findings on diagnostic imaging of wefembu0809/23/2023MI 50.0-59.9, adult08/26/2023 Ezsnhhespdjvafip61/31/2024Erosive ijpvqqwfj25/28/2023ortal hypertensive xlxsixywtke2023Fatty liver07/23/20237212Ojayzrxlfccwjwapbm84/30/2023Iron deficiency emqpuw0905/25/2023therosclerosis of circle coronary artery of circle heart without angina clecgzqu02/14/2023enign essential jcfusboztdqr15/14/2023 Ikqgikaqeoldiqeaskba93/14/2023Lower urinary tract symptoms due to benign prostatic xkljzuerrdc05/14/2023Lumbar degenerative disc clbcblb0902/06/2023Lumbar fzrkwpterlo40/14/2023Obstructive sleep apnea02/06/2023Other chronic pain 02/06/2023Overactive loqxbhr7402/06/2023rimary /14/2023rimary osteoarthritis of left knee02/06/2023rimary osteoarthritis of right knee 02/06/2023Testicular lyfdnkcifaal92/14/2023Type 2 diabetes mellitus with other specified dqfspyrvwxqu35/14/2023arotid artery afwrktqv04/05/2023 Overview (10/05/2023): Last Assessment & Plan: Continue ASA, lipitor Abnormal results of cardiovascular function qgkhqtr7901/28/2013 Encounters DateTypeDepartmentCare ZkszQjxwhyjgfls56/10/2025bstract [facility] [address] [place] [address] Kendell Finch MD 06/05/2025Telephone [facility] [address] [place] [address] Kendell Finch MD 06/02/2025bstract [facility] [address] [place] [address] Kendell Finch MD 05/18/2025 1:15 PM EDTOffice Visit [facility] [address] [place] [phone] Sal Blank, DISTRICT COURT ADMINISTRATOR Primary osteoarthritis of left knee (Primary Dx); Chronic pain of left knee; Primary osteoarthritis of right knee05/18/2025amboo flowsheet [facility] [address] [place] [address] Sal Blank NP 05/18/20250251Jfcwwm30/16/9025Kvvyeh46/09/2025 9:45 AM EDTAncillary Procedure [facility] [address] [facility] [place] [address] 05/04/2025 9:45 AM EDTOffice Visit [facility] [address] [facility] [place] [phone] Sal Blank, DISTRICT COURT ADMINISTRATOR Primary osteoarthritis of right knee (Primary Dx); Right knee pain, unspecified tivuhqmqcm29/09/2025amboo flowsheet [facility] [address] [facility] [place] [address] Sal Blank NP 05/04/20256197Vmrldz29/03/0759Qhbymd02/03/2025linisync Result Encounter [facility] External Department Unsolicited Provider, Generic External Data from Last 3 Months Immunizations ImmunizationAdministration DatesNext DueInfluenza, High-dose Seasonal, Quadrivalent, Preservative Free05/15/2023Influenza, injectable, quadrivalent 05/20/2021,05/07/2019Influenza, injectable, quadrivalent, preservative free 07/03/2020Influenza, seasonal, myglcsdrys82/08/2014Influenza, seasonal, injectable, preservative free07/26/2015Influenza, seasonal, intradermal, preservative free05/06/2013Pneumococcal Polysaccharide UYFT1266Tdap 11/17/2018Zoster, Bvzfpgrsofl99/29/2020,06/10/2019 Family History Medical HistoryRelationNameCommentsCancerFatherLONHypertensionMotherNANCY RelationNameStatusCommentsFatherLONDeceasedMotherNANCYAliveSisterAlive Social History Tobacco UseTypesPacks/DayYears UsedDateSmoking Tobacco: NeverSmokeless Tobacco: Never Tobacco Cessation:Counseling Given: Not Answered Alcohol UseStandard Drinks/WeekCommentsNot Currently0 (1 standard drink = 0.6 oz pure alcohol)caffeine intake: sodaPHQ-2AnswerDate RecordedPatient Health Questionnaire-2 [facility]832[facility] Pain[facility] of Occupational Health - Occupational Stress QuestionnaireAnswerDate RecordedDo you feel stress - tense, restless, nervous, or anxious, or unable to sleep at night because yourmind is troubled all the time - these days?Only a rahmqy1212/17/2023Exercise Vital Sign AnswerDate RecordedOn average, how many days per week do you engage in moderate to strenuous exercise (like a brisk walk)?Patient obdfnvmw14/23/2024On average, how many minutes do you engage in exercise at this level?Patient declined 12/17/2023Sex and Gender InformationValueDate RecordedSex Assigned at BirthNot on fileLegal LbfQxyi9210/08/2022 7:05 PM EDTGender IdentityNot on fileSexual OrientationNot on file Last Filed Vital Signs Vital SignReadingTime TakenCommentsBlood Hmdxschx294/6407 8:59 AM EDT Abzzi408202/20/2025 8:59 AM EDTTemperature--Respiratory Ryqy647710/05/2023 1:56 PM EDTOxygen Uyhbppwbkc52%02/20/2025 8:59 AM EDTInhaled Oxygen Concentration-- Vxioxg899 kg (276 lb)02/20/2025 8:59 AM VSREhrhch135.7 cm (5' 8 )02/20/2025 8:59 AM EDTBody Mass Index41.9702/20/2025 8:59 AM EDT Plan of Treatment DateTypeDepartmentCare Team (Latest Contact Info)Ksjmrffeilu78/28/2026 9:30 AM ESTOffice Visit [facility] [facility] [address] [facility] [address] [place] [phone] Kendell Finch MD [address] [facility] [address] [place] [address] Health MaintenanceDue DateLast DoneCommentsCT Njqxewjbwusx1957FIT-DNA 1957FIT1957FOBT1957Medicare Annual Wellness (AWV)1955 Hmiimicjevgyq1957Pneumococcal Vaccine: 65+ Years (2 of 2 - PCV)05/19/2020 05/19/2019COVID-19 Vaccine (3 - 2024- season)/11/2020, 12/01/2020 Influenza Vaccine (#1), 05/20/2021, 07/03/2020, Additional history existsDiabetes: Hemoglobin A1C, 08/22/2024, 04/20/2024, Additional history existsDiabetes: Retinopathy Vixucctxg07/22/2026 10/16/2023, 07/29/2022, 1Diabetes: Urine Protein Cbzrkztql30/18/2026 04/13/2025, 04/20/2024, 04/22/2023, Additional history existsColonoscopy /, 02/06/2017Colorectal Cancer Hgfvzwnjl01/14/2032 Procedures Procedure NamePriorityDate/TimeAssociated DiagnosisCommentsPR ARTHROCENTESIS ASPIR&/INJ MAJOR JT/BURSA W/O BYDybtrjg32/23/2025 1:06 PM EDT Primary osteoarthritis of left knee NM ARTHROCENTESIS ASPIR&/INJ MAJOR JT/BURSA W/O OYGffuaom73/09/2025 11:54 AM EDT Primary osteoarthritis of right knee XR KNEE 1-2 VIEWS WCCLRBnwcocp37/09/2025 9:44 AM EDT Right knee pain, unspecified chronicity [facility] IMMUNOFIXATION SCREEN, PRHZDMexcvxp93/03/2025 11:23 AM EDT [facility] PROTEIN ELECTROPHORESIS SERUM (P)Ybwjbfg1604/28/2025 11:23 AM EDT ALL KAPPA/LAMBDA FREE YFGORFkedtdq30/03/2025 11:23 AM EDT [facility] B2 MICROGLOB SERPL-EMZCEvyeudn08/03/2025 11:23 AM EDT [facility] PROT SERPL-WZKYOiggxkf36/03/2025 11:23 AM EDT [facility] FOLATE SERPL-GMNVSwhkmrl38/03/2025 11:23 AM EDT [facility] VIT B12 SERPL-DJJMQfrrnxf85/03/2025 11:23 AM EDT [facility] IMMUNOGLOBULINS LNGRcyfolx18/03/2025 11:23 AM EDT [facility] FERRITIN SERPL-WLHJQtibtsr60/03/2025 11:23 AM EDT [facility] IRON+TIBC PNL LMKARSnnsgty17/03/2025 11:23 AM EDT [facility] CA-I SERPL-MBKJMyyfuao06/03/2025 11:23 AM EDT [facility] COMP METAB 2000 PNL DKEAJWsjpfpb73/03/2025 11:23 AM EDT [facility] LDH SERPL-ZBFBQvwlwci02/03/2025 11:23 AM EDT [facility] PHOSPHATE SERPL-YCJDLrnfquc15/03/2025 11:23 AM EDT [facility] URATE SERPL-UDUELgtdguw71/03/2025 11:23 AM EDT [facility] CBC W AUTO DIFF LSRUhixxmf75/03/2025 11:23 AM EDT MICROALBUMIN / CREATININE URINE QYZEQAqdhrvl38/18/2025 2:52 PM EDT Type 2 diabetes mellitus with other specified complication, without long-term current use of insulin (HCC) LIPID QSKAQHflmcfm11/17/2025 9:43 AM EDT Type 2 diabetes mellitus with other specified complication, without long-term current use of insulin (HCC) Hypercholesterolemia TSH W/REFLEX TO MU4Gitasli33/17/2025 9:43 AM EDT Type 2 diabetes mellitus with other specified complication, without long-term current use of insulin (HCC) BMI 50.0-59.9, adult ([facility]) PSA, HDDLOOojdhib88/17/2025 9:43 AM EDT Prostate cancer screening POCT GLYCATED HEMOGLOBIN, XRSGOEcwbgbn78/28/2025 9:19 AM EDT Type 2 diabetes mellitus with other specified complication, without long-term current use of insulin (HCC) DIABETIC RETINOPATHY SCREENING - OU - BOTH XVCPSbmvyoe06/22/2024 TQVHQGDVPDGOhnmcpm76/14/2022 12:00 PM EST from Last 3 Months or Most Recently Relevant to Health Maintenance Results * NM ARTHROCENTESIS ASPIR&/INJ MAJOR JT/BURSA W/O US (05/18/2025 1:06 PM EDT) Narrative Sal Blank NP - 05/18/2025 1:06 PM EDT Sal Blank NP 05/18/2025 1:07 PM L Inj/Asp: L knee on 05/18/2025 1:06 PM Indications: pain Details: 21 G needle, anterolateral approach Medications: 40 mg methylPREDNISolone acetate 40 MG/ML Outcome: tolerated well, no immediate complications Site was cleaned with isopropyl alcohol Procedure, treatment alternatives, risks and benefits explained, specific risks discussed. Consent was given by the patient. Authorizing ProviderResult TypeResult StatusSal Blank NPIN CLINIC/BEDSIDE ORDERABLESFinal Result * NM ARTHROCENTESIS ASPIR&/INJ MAJOR JT/BURSA W/O US (05/04/2025 11:54 AM EDT) Narrative Sal Blank NP - 05/04/2025 11:54 AM EDT Sal Blank NP 05/04/2025 11:55 AM L Inj/Asp: R knee on 05/04/2025 11:54 AM Indications: pain Details: 21 G needle, anterolateral approach Medications: 40 mg methylPREDNISolone acetate 40 MG/ML Outcome: tolerated well, no immediate complications Site cleaned with isopropyl alcohol Procedure, treatment alternatives, risks and benefits explained, specific risks discussed. Consent was given by the patient. Authorizing ProviderResult TypeResult Melanie Blank NPIN CLINIC/BEDSIDE ORDERABLESFinal Result * XR knee 1 or 2 views right (05/04/2025 9:44 AM EDT)Anatomical RegionLaterality ModalityLower Extremities, KneeRightRadiographic ImagingSpecimen (Source) Anatomical Location / LateralityCollection Method / VolumeCollection Time Received Time Narrative 05/04/2025 11:54 AM EDT Imaging Result: 05/03/2025: X-rays AP and lateral of right knee showed severe varus deformity with bone on bone medial joint space. There is flattening of the articular surfaces medially to the tibia plateau and femoral condyle. ?? There is marginal osteophytic formation and subchondral sclerosis noted medially and the patellofemoral joint. ??There is no evidence of fracture or dislocation. ??Bony structures viewed showed appropriate ossification Impression: Severe Osteoarthritis of the right knee with varus alignment Sal Blank [employer]PENTER ASSEMBLER[employer]CON[employer]YOR MAN Authorizing ProviderResult TypeResult StatusGrant Jeffry Blank NPIMG XR PROCEDURES Final Result * [facility] VIT B12 SERPL-MCNC (04/28/2025 11:23 AM EDT)ComponentValueRef RangeTest MethodAnalysis TimePerformed AtPathologist SignatureCCF VIT B12 SERPL-WNQT052 232 - 1,245 pg/mLCCFSpecimen (Source)Anatomical Location / Laterality Collection Method / VolumeCollection TimeReceived Time04/28/2025 11:23 AM EDT 04/28/2025 3:48 PM EDT Narrative CLINISYNC - 04/28/2025 10:47 PM EDT Specimen Type: BLOOD SPECIMEN Ordering Facility: [facility] ?Address: [address] [place] [address] Original Ordering Provider: TAE RYAN Authorizing ProviderResult TypeResult StatusGeneric External Data Provider CLINISYNCFinal ResultPerforming OrganizationAddressCity/[facility] CodePhone Number CLINISYNC [facility] [address] [place] [address] * (ABNORMAL) [facility] URATE SERPL-MCNC (04/28/2025 11:23 AM EDT)ComponentValueRef RangeTest MethodAnalysis TimePerformed AtPathologist SignatureCCF URATE SERPL-MCNC8.8(H)4.0 - 8.1 mg/dLCCFSpecimen (Source)Anatomical Location / LateralityCollection Method / VolumeCollection TimeReceived Time04/28/2025 11:23 AM EDT1 11:23 AM EDT Narrative CLINISYNC - 04/28/2025 12:24 PM EDT Specimen Type: BLOOD SPECIMEN Ordering Facility: [facility] ?Address: [address] [place] [address] Original Ordering Provider: PEDRO VALIENTE Authorizing ProviderResult TypeResult StatusGeneric External Data Provider CLINISYNCFinal ResultPerforming OrganizationAddressCity/State/ZIP CodePhone Number CLINISYNC [facility] [address] [place] [address] * [facility] PROT SERPL-MCNC (04/28/2025 11:23 AM EDT)ComponentValueRef RangeTest MethodAnalysis TimePerformed AtPathologist SignatureCCF PROT SERPL-MCNC6.86.3 - 8.0 g/dLCCFSpecimen (Source)Anatomical Location / LateralityCollection Method / VolumeCollection TimeReceived Time04/28/2025 11:23 AM EDT1 3:48 PM EDT Narrative CLINISYNC - 04/28/2025 10:57 PM EDT Specimen Type: BLOOD SPECIMEN Ordering Facility: [facility] ?Address: [address] [place] [address] Original Ordering Provider: PEDRO VALIENTE Authorizing ProviderResult TypeResult StatusGeneric External Data Provider CLINISYNCFinal ResultPerforming OrganizationAddressCity/State/ZIP CodePhone Number KYLAH [facility] [address] [facility] [address] [place] [address] * (ABNORMAL) [facility] PHOSPHATE SERPL-MCNC (04/28/2025 11:23 AM EDT)ComponentValueRef RangeTest MethodAnalysis TimePerformed AtPathologist SignatureCCF PHOSPHATE SERPL-MCNC2.6(L)2.7 - 4.8 mg/dLCCFSpecimen (Source)Anatomical Location / LateralityCollection Method / VolumeCollection TimeReceived Time04/28/2025 11:23 AM EDT1 11:23 AM EDT Narrative CLINISYNC - 04/28/2025 12:24 PM EDT Specimen Type: BLOOD SPECIMEN Ordering Facility: [facility] ?Address: [address] [place] [address] Original Ordering Provider: PEDRO VALIENTE Authorizing ProviderResult TypeResult StatusGeneric External Data Provider CLINISYNCFinal ResultPerforming OrganizationAddressCity/State/ZIP CodePhone Number ADELAIDEISYNC [facility] [address] [place] [address] * [facility] LDH SERPL-CCNC (04/28/2025 11:23 AM EDT)ComponentValueRef RangeTest Method Analysis TimePerformed AtPathologist SignatureCCF LDH SERPL-[id number] - 225 U/LCCFSpecimen (Source)Anatomical Location / LateralityCollection Method / VolumeCollection TimeReceived Time04/28/2025 11:23 AM EDT1 11:23 AM EDT Narrative CLINISYNC - 04/28/2025 12:24 PM EDT Specimen Type: BLOOD SPECIMEN Ordering Facility: [facility] ?Address: [address] [place] [address] Original Ordering Provider: PEDRO VALIENTE Authorizing ProviderResult TypeResult StatusGeneric External Data Provider CLINISYNCFinal ResultPerforming OrganizationAddSelect Specialty Hospital - Johnstownty/[facility]/ZIP CodePhone Number CLINISYNC [facility] [address] [place] [address] * [facility] IRON+TIBC PNL SERPL (04/28/2025 11:23 AM EDT)ComponentValueRef RangeTest MethodAnalysis TimePerformed AtPathologist SignatureCCF IRON SERPL-LDEP7790 - 186 ug/dLCCFCCF TIBC SERPL-YBVL954896 - 386 ug/dLCCFCCF IRON/TIBC SERPL-SRTO 16.315.0 - 57.0 %CCFSpecimen (Source)Anatomical Location / Laterality Collection Method / VolumeCollection TimeReceived Time04/28/2025 11:23 AM EDT 04/28/2025 3:48 PM EDT Narrative CLINISYNC - 04/28/2025 9:18 PM EDT Specimen Type: BLOOD SPECIMEN Ordering Facility: [facility] ?Address: [address] [place] [address] Original Ordering Provider: TAE RYAN Authorizing ProviderResult TypeResult StatusGeneric External Data Provider CLINISYNCFinal ResultPerforming OrganizationAddGeising[facility]/ZIP CodePhone Number CLINISYNC [facility] [address] [facility] [address] [place] [phone] * [facility] IMMUNOGLOBULINS NATALIIA (04/28/2025 11:23 AM EDT)ComponentValueRef RangeTest MethodAnalysis TimePerformed AtPathologist SignatureCCF IGG SERPL-SHAR117011 - 1,600 mg/dLCCFCCF IGA SERPL-KJYD33022 - 400 mg/dLCCFCCF IGM SERPL-DJHE64579 - 230 mg/dLCCFSpecimen (Source)Anatomical Location / LateralityCollection Method / VolumeCollection TimeReceived Time04/28/2025 11:23 AM EDT1 6:01 PM EDT Narrative CLINISYNC - 04/28/2025 9:24 PM EDT Specimen Type: BLOOD SPECIMEN Ordering Facility: [facility] ?Address: [address] [place] [address] Original Ordering Provider: PEDRO VALIENTE Authorizing ProviderResult TypeResult StatusGeneric External Data Provider CLINISYNCFinal ResultPerforming OrganizationAddressty/State/ZIP CodePhone Number KASEYNC [facility] [address] [place] [address] * [facility] FOLATE SERPL-MCNC (04/28/2025 11:23 AM EDT)ComponentValueRef RangeTest MethodAnalysis TimePerformed AtPathologist SignatureCCF FOLATE SERPL-MCNC>20.0 >4.7 ng/mLCCFComment: A result of > 20 ng/mL is not necessarily indicative of a pathologic or treatable condition: it reflects a limitation of the test methodology. Assay reference range: 4.8 to 24.2 ng/mL. Suitable for detection of folate deficiency. Reference: Folate III (Folate III) [package insert V 1.0 Indonesian]. [facility], [place], [place]: May 2015. Specimen (Source)Anatomical Location / LateralityCollection Method / Volume Collection TimeReceived Time04/28/2025 11:23 AM EDT1 3:48 PM EDT Narrative CLINISYNC - 04/28/2025 10:47 PM EDT Specimen Type: BLOOD SPECIMEN Ordering Facility: [facility] ?Address: [address] [place] [address] Original Ordering Provider: TAE RYAN Authorizing ProviderResult TypeResult StatusGeneric External Data Provider CLINISYNCFinal ResultPerforming OrganizationAddGeisinger [facility] CodePhone Number KYLAH CC [address] [place] [address] * [facility] FERRITIN SERPL-MCNC (04/28/2025 11:23 AM EDT)ComponentValueRef RangeTest MethodAnalysis TimePerformed AtPathologist SignatureCCF FERRITIN SERPL-MCNC 137.030.3 - 565.7 ng/mLCCFSpecimen (Source)Anatomical Location / Laterality Collection Method / VolumeCollection TimeReceived Time04/28/2025 11:23 AM EDT 04/28/2025 3:48 PM EDT Narrative CLINISYNC - 04/28/2025 9:23 PM EDT Specimen Type: BLOOD SPECIMEN Ordering Facility: [facility] ?Address: [address] [place] [address] Original Ordering Provider: TAE RYAN Authorizing ProviderResult TypeResult StatusGeneric External Data Provider CLINISYNCFinal ResultPerforming OrganizationAddressCity/State/ZIP CodePhone Number CLINISYNC [facility] [address] [facility] [address] [place] [address] * (ABNORMAL) [facility] CBC W AUTO DIFF BLD (04/28/2025 11:23 AM EDT)ComponentValueRef RangeTest MethodAnalysis TimePerformed AtPathologist SignatureCCF WBC # BLD AUTO4.143.70 - 11.00 k/uLCCFCCF RBC # BLD AUTO3.87(L)4.20 - 6.00 m/uLCCFCCF HGB BLD-MCNC11.4(L)13.0 - 17.0 g/dLCCFCCF HCT VFR BLD AUTO34.2(L)39.0 - 51.0 % CCFCCF MCV RBC AUTO88.480.0 - 100.0 fLCCFCCF MCH RBC QN AUTO29.526.0 - 34.0 pg CCFCCF MCHC RBC AUTO-MCNC33.330.5 - 36.0 g/dLCCFCCF RDW RBC-RTO13.511.5 - 15.0 %CCFCCF PLATELET # BLD AADE926(L)150 - 400 k/uLCCFCCF PMV BLD AUTO9.39.0 - 12.7 fLCCFCCF NEUTROPHILS/LEUK NFR BLD AUTO64.4%CCFCCF NEUTROPHILS # BLD AUTO 2.671.45 - 7.50 k/uLCCFCCF LYMPHOCYTES/LEUK NFR BLD AUTO27.1%CCFCCF LYMPHOCYTES # BLD AUTO1.121.00 - 4.00 k/uLCCFCCF MONOCYTES/LEUK NFR BLD AUTO 6.3%CCFCCF MONOCYTES # BLD AUTO0.26<0.87 k/uLCCFCCF EOSINOPHIL/LEUK NFR BLD AUTO1.2%CCFCCF EOSINOPHIL # BLD AUTO0.05<0.46 k/uLCCFCCF BASOPHILS/LEUK NFR BLD AUTO0.5%CCFCCF BASOPHILS # BLD AUTO<0.03<0.11 k/uLCCFIMM GRANULOCYTES/LEUK NFR BLD AUTO0.5%CCFIMM GRANULOCYTES # BLD AUTO<0.03<0.10 k/uLCCFCCF NRBC/100 WBC BLD-RTO0.0/100 WBCCCFCCF NRBC # BLD AUTO<0.01<0.01 k/uLCCFCCF DIFFERENTIAL METHOD BLDAutoCCFSpecimen (Source)Anatomical Location / LateralityCollection Method / VolumeCollection TimeReceived Time04/28/2025 11:23 AM EDT1 11:23 AM EDT Narrative CLINISYNC - 04/28/2025 11:52 AM EDT Specimen Type: BLOOD SPECIMEN Ordering Facility: [facility] ?Address: [address] [place], [place] [phone] Original Ordering Provider: TAE RYAN Authorizing ProviderResult TypeResult StatusGeneric External Data Provider CLINISYNCFinal ResultPerforming OrganizationAddressCity/State/[facility] CodePhone Number [address] [address] * CC CA-I SERPL-SCNC (04/28/2025 11:23 AM EDT)ComponentValueRef RangeTest MethodAnalysis TimePerformed AtPathologist SignatureCCF CA-I ADJ PH7.4 BLD-SCNC1.281.08 - 1.30 mmol/LCCFCCF CA-I BLD-MCNC1.301.08 - 1.30 mmol/LCCF Specimen (Source)Anatomical Location / LateralityCollection Method / Volume Collection TimeReceived Time04/28/2025 11:23 AM EDT1 3:33 PM EDT Narrative CLINISYNC - 04/28/2025 3:59 PM EDT Specimen Type: BLOOD SPECIMEN Ordering Facility: [facility] ?Address: [address] [place], [place] [phone] Original Ordering Provider: PEDRO VALIENTE Authorizing ProviderResult TypeResult StatusGeneric External Data Provider CLINISYNCFinal ResultPerforming OrganizationAddSelect Specialty Hospital [facility]stownty/[facility]/ZIP CodePhone Number KYLAH CC [address] [place] [phone] * [facility] B2 MICROGLOB SERPL-MCNC (04/28/2025 11:23 AM EDT)ComponentValueRef Range Test MethodAnalysis TimePerformed AtPathologist SignatureCCF B2 MICROGLOB SERPL-MCNC2.9<3.1 mg/LCCFComment:Beta-2 Microglobulin test is performed using the [employer] immunoturbidimetric method. Results obtained with different methods or kits cannot be used interchangeably.Specimen (Source) Anatomical Location / LateralityCollection Method / VolumeCollection Time Received Time04/28/2025 11:23 AM EDT1 3:48 PM EDT Narrative CLINISYNC - 04/29/2025 6:01 AM EDT Specimen Type: BLOOD SPECIMEN Ordering Facility: [facility] ?Address: [address] [place], [place] [phone] Original Ordering Provider: PEDRO VALIENTE Authorizing ProviderResult TypeResult StatusGeneric External Data Provider [facility]NC[facility] ResultPerforming OrganizationAddGeisinger [facility] CodePhone Number KYLAH CC [address] [address] * (ABNORMAL) ALL KAPPA/LAMBDA FREE SERUM (04/28/2025 11:23 AM EDT)ComponentValue Ref RangeTest MethodAnalysis TimePerformed AtPathologist SignatureCCF KAPPA LC FREE SER-MCNC33.9(H)3.3 - 19.4 mg/LCCFComment: Rarely, increased serum free light chains levels may not be detected or accurately quantified due to prozone phenomenon or in high viscosity samples using this immunoturbidimetric assay. Correlation with other laboratory results and clinical findings is recommended. The [address] Free Light Chain was performed using the Binding Site Optilite immunoturbidimetric method. Result obtained with different assay methods or kits cannot be used interchangeably. [facility] LAMBDA LC FREE SERPL-MCNC24.25.7 - 26.3 mg/LCCFComment: Rarely, increased serum free light chains levels [...] or kits cannot be used interchangeably. ?? [facility] KAPPA LC/LAMBDA SER1.400.26 - 1.65CCFSpecimen (Source)Anatomical Location / LateralityCollection Method / VolumeCollection TimeReceived Time04/28/2025 11:23 AM EDT1 6:01 PM EDT Narrative CLIN[facility]NC - 05/01/2025 2:25 PM EDT Specimen Type: BLOOD SPECIMEN Ordering Facility: [facility] ?Address: [address] [place] [address] Original Ordering Provider: PEDRO VALIENTE Authorizing ProviderResult TypeResult StatusGeneric External Data Provider CLINISYNCFinal ResultPerforming OrganizationAddressCity/State/[facility] CodePhone Number CLINISYNC [facility] [address] [facility] [facility] [place] [address] * (ABNORMAL) [facility] COMP METAB 2000 PNL SERPL (04/28/2025 11:23 AM EDT)Component ValueRef RangeTest MethodAnalysis TimePerformed AtPathologist SignatureCCF PROT SERPL-MCNC6.96.3 - 8.0 g/dLCCFCCF ALBUMIN SERPL-MCNC4.33.9 - 4.9 g/dLCCF [facility] CALCIUM SERPL-MCNC9.88.5 - 10.2 mg/dLCCFCCF BILIRUB SERPL-MCNC0.50.2 - 1.3 mg/dLCCFCCF ALP SERPL-LYBZ126(H)38 - 113 U/LCCFCCF AST SERPL-UJFK1961 - 40 U/L CCFCCF ALT SERPL-CCZZ5585 - 54 U/LCCFCCF GLUCOSE SERPL-NKEZ920(H)74 - 99 mg/dL CCFComment: The [place] Diabetes Association (ADA) provides guidance for cutoff [...] Standards of Medical Care in Diabetes 2016, [place] Diabetes Association. Diabetes Care. 2016.39(Suppl 1). [facility] BUN SERPL-MCNC41(H)9 - 24 mg/dLCCFCCF CREAT SERPL-MCNC1.190.73 - 1.22 mg/dL CCFCCF SODIUM SERPL-AGRP164181 - 144 mmol/LCCFCCF POTASSIUM SERPL-SCNC4.23.7 - 5.1 mmol/LCCFCCF CHLORIDE SERPL-GDDH58461 - 107 mmol/LCCFCCF CO2 SERPL-SCNC21(L) 22 - 30 mmol/LCCFCCF ANION GAP SERPL-TBHQ396 - 15 mmol/LCCFEGFRCR SERPLBLD CKD- EPI 20201231>=60 mL/min/1.73m???CCFComment:Estimated Glomerular Filtration Rate (eGFR) is calculated using the 2020 CKD-EPI creatinine equation. This equation utilizes serum creatinine, sex, and age as parameters. The creatinine assay has traceable calibration to isotope dilution-mass spectrometry. Refer to KDIGO guidelines for clinical interpretation. In patients with unstable renal function, e.g. those with acute kidney injury, the eGFRmay not accurately reflect actual GFR.Specimen (Source)Anatomical Location / LateralityCollection Method / VolumeCollection TimeReceived Time04/28/2025 11:23 AM EDT1 11:23 AM EDT Narrative CLINISYNC - 04/28/2025 12:24 PM EDT Specimen Type: BLOOD SPECIMEN Ordering Facility: [facility] ?[address] [address] Original Ordering Provider: TAE RYAN Authorizing ProviderResult TypeResult StatusGeneric External Data Provider CLINISYNCFinal ResultPerforming OrganizationAddressCity/State/ZIP CodePhone Number CLINISYNC [facility] [address] [place] [address] * (ABNORMAL) [facility] IMMUNOFIXATION SCREEN, SERUM (04/28/2025 11:23 AM EDT)Component ValueRef RangeTest MethodAnalysis TimePerformed AtPathologist SignatureCCF MPA RESULTM protein is present.(A)No M protein is identified.CCFCCF INTERPRETATION (MPA)Two sets of atypical restricted bands are present in the specimen, one in the IgG and kappa lanes, and the other in the IgG and lambda lanes. 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.CCF [facility] STAFF REVIEW ([facility])Reviewed by Donell Sauer M.D.CCFSpecimen (Source) Anatomical Location / LateralityCollection Method / VolumeCollection Time Received Time04/28/2025 11:23 AM EDT1 6:01 PM EDT [facility] - 05/02/2025 12:29 PM EDT Specimen Type: BLOOD SPECIMEN Ordering Facility: [facility] ?Address: [address] [place] [address] Original Ordering Provider: PEDRO VALIENTE Authorizing ProviderResult TypeResult StatusGeneric External Data Provider CLINISYNCFinal ResultPerforming OrganizationAddressCity/State/ZIP CodePhone Number [facility] [address] [facility] [place] [phone] * [facility] PROTEIN ELECTROPHORESIS SERUM (P) (04/28/2025 11:23 AM EDT)ComponentValue Ref RangeTest MethodAnalysis TimePerformed AtPathologist SignatureALBUMIN SERPL ELPH-MCNC4.083.43 - 5.41 g/dLCCFCCF ALPHA1 GLOB SERPL ELPH-MCNC0.280.18 - 0.43 g/dLCCFCCF ALPHA2 GLOB SERPL ELPH-MCNC0.820.42 - 0.98 g/dLCCFCCF B- GLOBULIN SERPL ELPH-MCNC0.790.61 - 1.17 g/dLCCFGAMMA GLOB SERPL ELPH-MCNC0.83 0.53 - 1.51 g/dLCCFCCF PROT PATTERN SERPL ELPH-IMPNo definitive M protein is identified on protein electrophoresis.No definitive M protein is identified on protein electrophoresis.CCFCCF M-PROTEIN LOCATIONCCFComment:Not Applicable.CCF M PROTEIN SERPL ELPH-MCNC0.00<=0.00 g/dLCCPROVIDENCE [facility] STAFF REVIEWReviewed by Donell Sauer M.D.CCFSpecimen (Source)Anatomical Location / Laterality Collection Method / VolumeCollection TimeReceived Time04/28/2025 11:23 AM EDT 04/28/2025 6:01 PM EDT Narrative CLINISYNC - 05/02/2025 7:38 AM EDT Specimen Type: BLOOD SPECIMEN Ordering Facility: [facility] ?Address: [address] [place] [address] Original Ordering Provider: PEDRO VALIENTE Authorizing ProviderResult TypeResult StatusGeneric External Data Provider CLINISYNCFinal ResultPerforming OrganizationAddressCity/State/[facility] CodePhone Number [facility] [address] [facility] [address] [place] [address] * Microalbumin / creatinine urine ratio (04/13/2025 2:52 PM EDT)ComponentValue Ref RangeTest MethodAnalysis TimePerformed AtPathologist SignatureCREATININE, RANDOM FKMJF27379 - 320 mg/dLQUESTALBUMIN, URINE0.2See Note: mg/dLQUEST Comment: Reference Range: Reference Range Not established ALBUMIN/CREATININE RATIO, RANDOM URINE2<30 mg/g creatQUESTComment: The ADA defines abnormalities in albumin excretion as follows: Albuminuria Category ?Result (mg/g creatinine) Normal to Mildly increased <30 Moderately increased ? 30-299 Severely increased > OR = 300 The ADA recommends that at least two of three specimens collected within a 3-6 month period be abnormal before considering a patient to be within a diagnostic category. Specimen (Source)Anatomical Location / LateralityCollection Method / Volume Collection TimeReceived TimeUrineUrine specimen obtained by clean catch procedure / Nzrtwmn3904/13/2025 2:52 PM EDT04/13/2025 2:52 PM EDT Narrative Resulting Agency Comment Performing Organization Information ?Site ID: QPT ?Name: [facility] ?Address: [address] [place] [address], [address] [place] [phone] ?Director: Dominick Lott MD Authorizing ProviderResult TypeResult StatusKendell TOTH URINE ORDERABLESFinal ResultPerforming OrganizationAddressty/State/ZIP CodePhone Number [facility] * TSH W/REFLEX TO FT4 (04/12/2025 9:43 AM EDT)ComponentValueRef RangeTest Method Analysis TimePerformed AtPathologist SignatureTSH W/REFLEX TO FT40.990.40 - 4.50 mIU/LQUESTSpecimen (Source)Anatomical Location / LateralityCollection Method / VolumeCollection TimeReceived Time04/12/2025 9:43 AM EDT04/12/2025 9:44 AM EDT Narrative [facility] - 04/13/2025 4:13 AM EDT FASTING:YES PATIENT UNABLE TO VOID; ADVISED TO RETURN FOR COLLECTION. FASTING: YES Resulting Agency Comment Performing Organization Information ?Site ID: QPT ?Name: [facility] ?Address: [address] [place] [phone] ?Director: Dominick Lott MD Authorizing ProviderResult TypeResult StatusKendell TOTH BLOOD ORDERABLESFinal ResultPerforming OrganizationAddGeisinger [facility] CodePhone Number [facility] * PSA (04/12/2025 9:43 AM EDT)ComponentValueRef RangeTest MethodAnalysis Time Performed AtPathologist SignaturePSA, TOTAL0.37< OR = 4.00 ng/mLQUESTComment: The total PSA value from this assay system is standardized against the WHO standard. The test result will be approximately 20% lower when compared to the equimolar-standardized total PSA ([employer]). Comparison of serial PSA results should be interpreted with this fact in mind. This test was performed using the Siemens chemiluminescent method. Values obtained from different assay methods cannot be used interchangeably. PSA levels, regardless of value, should not be interpreted as absolute evidence of the presence or absence of disease. Specimen (Source)Anatomical Location / LateralityCollection Method / Volume Collection TimeReceived TimeBloodVenous blood specimen / Wwavngo1404/12/2025 9:43 AM EDT04/12/2025 9:44 AM EDT Narrative [facility] - 04/13/2025 4:13 AM EDT FASTING:YES PATIENT UNABLE TO VOID; ADVISED TO RETURN FOR COLLECTION. FASTING: YES Resulting Agency Comment Performing Organization Information ?Site ID: QPT ?Name: [facility] ?Address: [address] [place] [address], [address] [place] [phone] ?Director: Dominick Lott MD Authorizing ProviderResult TypeResult StatusDahayes Finch MDLAB BLOOD ORDERABLESFinal ResultPerforming OrganizationAddressCity/State/ZIP CodePhone Number [facility] * (ABNORMAL) Lipid panel (04/12/2025 9:43 AM EDT)ComponentValueRef RangeTest MethodAnalysis TimePerformed AtPathologist SignatureCHOLESTEROL, UMYWY018<200 mg/dLQUESTHDL RDBUCWEFVKK64> OR = 40 mg/gTMOIMFYIZQITLJNFLUM595(H)<150 mg/dL QUESTLDL PGNGHXPZQKY40pu/dL (calc)QUESTComment: Reference range: <100 Desirable range <100 mg/dL for primary prevention; <70 mg/dL for patients with CHD or diabetic patients with > or = 2 CHD risk factors. LDL-C is now calculated using the Jose-Jose calculation, which is a validated novel method providing better accuracy than the Friedewald equation in the estimation of LDL-C. Jose SS et al. DALI. 2013;310(19): 2865-2565 (http://education.Dealflow.com.Asktourism/faq/UCZ953) CHOL/HDLC RATIO2.6<5.0 (calc)QUESTNON HDL HQYDDYWYLKZ74<130 mg/dL (calc)QUEST Comment: For patients with diabetes plus 1 major ASCVD risk factor, treating to a non-HDL-C goal of <100 mg/dL (LDL-C of <70 mg/dL) is considered a therapeutic option. Specimen (Source)Anatomical Location / LateralityCollection Method / Volume Collection TimeReceived TimeBloodVenous blood specimen / Yrqsnph9004/12/2025 9:43 AM EDT04/12/2025 9:44 AM EDT Narrative [facility] - 04/13/2025 4:13 AM EDT FASTING:YES PATIENT UNABLE TO VOID; ADVISED TO RETURN FOR COLLECTION. FASTING: YES Resulting Agency Comment Performing Organization Information ?Site ID: QPT ?Name: [facility] ?Address: [address] [place] [address], [address] [place] [phone] ?Director: Dominick Lott MD Authorizing ProviderResult TypeResult Candace Finch MDLAB BLOOD ORDERABLESFinal ResultPerforming OrganizationAddressCity/State/ZIP CodePhone Number [facility] * POCT Glycated hemoglobin, total (02/20/2025 9:19 AM EDT)ComponentValueRef RangeTest MethodAnalysis TimePerformed AtPathologist SignatureHemoglobin A1C 6.1Specimen (Source)Anatomical Location / LateralityCollection Method / Volume Collection TimeReceived LxjbFhgem18/28/2025 9:19 AM EDT Narrative Authorizing ProviderResult TypeResult Candace Finch MDPOINT OF CARE TEST ENTER/EDIT ORDERABLESFinal Result * Diabetic Retinopathy Screening - OU - Both Eyes (10/16/2023)ComponentValueRef RangeTest MethodAnalysis TimePerformed AtPathologist SignatureRESULTSndr Anatomical RegionLateralityModalityHeadOtherSpecimen (Source)Anatomical Location / LateralityCollection Method / VolumeCollection TimeReceived Time 10/16/2023 Narrative Authorizing ProviderResult TypeResult Candace Finch MDOPHTH PHOTOGRAPHY Final Result * Colonoscopy (08/09/2021 12:00 PM EST)Anatomical RegionLateralityModality EndoscopySpecimen (Source)Anatomical Location / LateralityCollection Method / VolumeCollection TimeReceived Time08/09/2021 12:00 PM EST Narrative 08/09/2021 12:00 PM EST PERFORMED AT [facility] LOCATION:[id number] Procedure Note CONVERSION, GENERIC - 12/10/2022 PERFORMED AT [facility] LOCATION:[id number] Authorizing ProviderResult TypeResult Patrice Vazquez MDENDOSCOPY PROCEDURE ORDERABLESFinal Result from Last 3 Months or Most Recently Relevant to Health Maintenance Insurance Care Teams Team MemberRelationshipSpecialtyStart DateEnd Date Kendell Finch MD [address] [facility] [address] [place] [address] PCP - GeneralInternal Medicine02/11/23
--- NOTE | 2025-07-12 09:07 | US_ITS ---
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 No shadowing calculi or hydronephrosis are identified. No ultrasound correlate is visualized for the 7 mm hypodensity seen at the posterior lower pole of the right kidney on the comparison. There is no perinephric fluid. The urinary bladder is partially distended with a volume of 237 mL. No contour or intraluminal abnormalities are seen. US/US renal BI IMPRESSION: NO OBSTRUCTIVE UROPATHY. NONVISUALIZATION OF THE TINY HYPODENSITIES SEEN ON RECENT CT Impression dictated by: Siobhan Gooden M.D. 07/12/2025 9:40 AM Dictation Location: [place] [address] Electronically authenticated by: [id number] Y Date: 07/12/2025 09:40
== END 2025-07-12 08:54 | disposition home or self-care (01) ==
LOC: US 08:53
PROVIDERS: PCP Internal Medicine; Visit Provider Student in an Organized Health Care Education/Training Program
DX: D21.9 Benign neoplasm of connective and other soft tissue, unspecified (principal); Z12.5 Encounter for screening for malignant neoplasm of prostate
CPT/HCPCS: 36415; 76775; G0103